=== PATIENT | female | born 1950 | race Caucasian/White ===

== ENCOUNTER 2017-06-01 05:00 | Inpatient (IN) ==
[2017-05-28 14:55] LABS: Basophils # (Auto) 0 K/mcL (0.0-0.3); Basophils % (Auto) 0.9 % (0.0-2.0); Eosinophils # (Auto) 0.1 K/mcL (0.0-0.7); Eosinophils % (Auto) 2.1 % (0.0-7.0); Lymphocytes # (Auto) 1.2 K/mcL (1.5-4.8); Lymphocytes % (Auto) 22.5 % (15.5-49.0); Mean Cell Volume 96.2 fL (80.0-100.0); Mean Corpuscular HGB Conc 34.6 g/dL (31.0-36.0); Mean Corpuscular Hemoglobin 33.3 pg (26.0-34.0); Monocytes # (Auto) 0.2 K/mcL (0.1-0.9); Monocytes % (Auto) 4.5 % (1.0-12.0); Platelet Count 180 K/mcL (140-440); RBC 3.17 M/mcL (4.00-5.20); Red Cell Distribution Width 13.8 % (11.5-14.5)
[2017-05-28 15:15] LABS: Blood Urea Nitrogen 41 mg/dl (8-23)
[2017-05-28 15:47] LABS: Appearance,Urine HAZY; Bacteria,Urine 0 /hpf (0); Bilirubin,Urine NEG (NEG); Color,Urine STRAW; Glucose,Urine (UA) 50 mg/dL (NEG); Leukocyte Esterase,Urine 250 /uL (NEG); Nitrate,Urine NEG (NEG); Protein,Urine 100 mg/dL (NEG); Specific Gravity,Urine 1.009 (1.000-1.035); Urine Blood 0.03 mg/dL (<0.03); Urine RBC 1 /hpf (0-1); Urine Squamous Epithelial Cell 7 /hpf (0-4); Urine WBC 22 /hpf (0-4); Urobilinogen,Urine NEG (NEG)
[2017-06-01] MEDS ORDERED: ACETAMINOPHEN 500 MG TABLET PO SCH ×2 (06:00→07:00)
[2017-06-01] MEDS ORDERED: CELECOXIB 200 MG CAPSULE PO SCH (06:00)
[2017-06-01] MEDS ORDERED: PREGABALIN 75 MG CAPSULE PO SCH (06:00)
[2017-06-01] MEDS ORDERED: ceFAZolin 1 GM VIAL IV SCH (06:00)
[2017-06-01] MEDS ORDERED: oxyCODONE 10 MG TAB.ER.12H PO SCH (06:00)
[2017-06-01] MEDS ORDERED: KETOROLAC 30 MG, ROPIVACAINE HCL/PF 49.5 ML, EPINEPHrine 0.5 MG, 0.9 % SODIUM CHLORIDE ... IJ ONE (07:00)
[2017-06-01] MEDS ORDERED: LIDOCAINE HCL/PF 100 MG/5 ML SYRINGE IV ONE (07:32)
[2017-06-01] MEDS ORDERED: fentaNYL 250 MCG/5 ML VIAL IV ONE (07:32)
[2017-06-01] MEDS ORDERED: DEXAMETHASONE 10 MG/ML VIAL ONE (07:32)
[2017-06-01] MEDS ORDERED: PROPOFOL 200 MG/20 ML VIAL IV ONE (07:32)
[2017-06-01] MEDS ORDERED: GLYCOPYRROLATE 0.2 MG/ML VIAL IV ONE (07:32)
[2017-06-01] MEDS ORDERED: ONDANSETRON 4 MG/2 ML VIAL ONE (07:32)
[2017-06-01] MEDS ORDERED: GENTAMICIN SULFATE 800 MG/20 ML VIAL IR ONE (07:56)
[2017-06-01] MEDS ORDERED: METOPROLOL TARTRATE 5 MG/5 ML VIAL IV PRN (09:11)
[2017-06-01] MEDS ORDERED: FLUMAZENIL 0.1 MG/ML ML IV PRN (09:11)
[2017-06-01] MEDS ORDERED: ONDANSETRON 4 MG/2 ML VIAL IV PRN ×2 (09:11→09:16)
[2017-06-01] MEDS ORDERED: ePHEDrine 50 MG/ML AMPUL IV PRN (09:11)
[2017-06-01] MEDS ORDERED: BENZOCAINE/MENTHOL 1 LOZENGE PO PRN ×2 (09:11→09:16)
[2017-06-01] MEDS ORDERED: MEPERIDINE 25 MG/ML SYRINGE IV PRN (09:11)
[2017-06-01] MEDS ORDERED: IPRATROPIUM/ALBUTEROL 3 ML AMPUL.NEB NEB PRN (09:11)
[2017-06-01] MEDS ORDERED: ATROPINE SULFATE 0.4 MG/ML VIAL IV PRN (09:11)
[2017-06-01] MEDS ORDERED: METHOCARBAMOL 1,000 MG/10 ML VIAL IV PRN (09:11)
[2017-06-01] MEDS ORDERED: diphenhydrAMINE 50 MG/ML VIAL IV PRN (09:11)
[2017-06-01] MEDS ORDERED: HYDROmorphone 2 MG/ML SYRINGE IV PRN ×2 (09:11→09:16)
[2017-06-01] MEDS ORDERED: NALOXONE HCL 0.4 MG/ML VIAL IV PRN (09:11)
[2017-06-01] MEDS ORDERED: LACTATED RINGERS 1,000 ML IV SCH (09:15)
--- NOTE | 2017-06-01 09:15 | Brief Operative Note ---
Date of procedure: 06/01/17 Pre-op diagnosis: left knee djd severe Post-op diagnosis: same Procedure: lefty robotic tka Grafts/Implants: Yes Anesthesia: GETA Complications: none Complications Description: 06/01/17 09:16 none Surgeon: Demetrius Copeland Leadership Program Intern: Bobo Shanks Estimated blood loss (cc): 10 Tourniquet Time (Minutes): 50 Specimens Removed/Pathology: none sent Condition: stable Disposition: PACU
[2017-06-01] MEDS ORDERED: POLYETHYLENE GLYCOL 3350 17 GM PACKET PO PRN (09:16)
[2017-06-01] MEDS ORDERED: MAGNESIUM HYDROXIDE 30 ML ORAL.SUSP PO PRN (09:16)
[2017-06-01] MEDS ORDERED: TRANEXAMIC ACID 1,000 MG/10 ML VIAL IV SCH (09:16)
[2017-06-01] MEDS ORDERED: FLEETS ADULT ENEMA PR PRN (09:16)
[2017-06-01] MEDS ORDERED: ACETAMINOPHEN 325 MG TABLET PO PRN (09:16)
[2017-06-01] MEDS ORDERED: BISACODYL 10 MG SUPP.RECT PR PRN (09:16)
[2017-06-01] MEDS: fentaNYL 100 MCG/2 ML VIAL IV PRN ×2 (09:39→09:54)
--- NOTE | 2017-06-01 10:35 | XRay Report ---
CLINICAL INFORMATION: Postop total knee COMPARISON: None. FINDINGS: Total knee prostheses is anatomically aligned. No osseous abnormalities. Soft tissues swelling seen as expected IMPRESSION: Negative Interpreted and Authenticated by: George Ortega 06/01/17
--- NOTE | 2017-06-01 11:09 | Operative Note ---
DATE OF OPERATION: 06/01/2017 PREOPERATIVE DIAGNOSIS: Left knee degenerative arthritis throughout all three compartments. POSTOPERATIVE DIAGNOSIS: Left knee degenerative arthritis throughout all three compartments. PROCEDURE: Left total knee arthroplasty using the Zoodles robot. SURGEON: Demetrius Copeland MD ROUTER OPERATOR PIN: Bobo Shanks PA-C ANESTHESIA: General LMA anesthesia by Hillary Pendleton CRNA COMPLICATIONS: None. TOTAL TOURNIQUET TIME: 50 minutes. ESTIMATED BLOOD LOSS: Minimal. IMPLANTS PLACED: A size 5 femur and size 5 tibial baseplate for the left knee, both cemented, cruciate retained design with a 9 mm poly and a 33 mm patellar button. DESCRIPTION OF PROCEDURE: The patient was brought to the operating room and put to sleep with general LMA anesthesia. Once asleep, the patient had the left leg sterilely prepped and draped in the usual sterile fashion. Once confirmed as the operative site, preop antibiotics given and tranexamic acid given, the left leg was sterilely prepped and draped. Ioban was placed over the skin. We placed two pins above and below the knee and made a mid vastus approach to the knee. Severe arthritis of the lateral and trochlear groove and the medial compartment were present. There was severe arthritis throughout all three compartments. We proceeded with a robotic total knee. We placed pins above and below the knee, registered the center hip rotation and registered the medial and lateral malleolus and 30 points on the femur and tibia were registered as well as intra-articular pins. We then balanced the knee in both at 15 and 90 degrees. Once perfectly balanced and we had adjusted the size of the implant and rotation for patellar tracking, we then proceeded with the robotic portion of the case. We registered the robot. The robot was brought in and the femoral cuts were made. We then made our tibial cut and the bony fragments were removed. A size 5 tibial baseplate setting the rotation per the preoperative plan was tapped into place. Coverage was excellent. We then placed a size 5 femur with a cruciate retained design. Posterior spurs were removed. At this point, any medial and lateral spurs were also removed. We irrigated thoroughly and placed a 9 and 11 poly insert. The 9 seemed to be the most appropriate for tension. This took her out of recurvatum. She is in about 7 to 10 degrees of recurvatum to start the case. This brought her to 0, perfectly anatomically aligned with varus valgus. The patella was then prepared and measured 22 mm in total thickness. This was cut to 14 and then cemented into place. A size 33 mm patellar button and a size 5 femur after using the CarboJet to clean the bone, we cemented into place a size 5 femur and then placed a 9 mm poly. All excess cement was removed. We had injected the soft tissues with the post-injection formula. The patient tolerated this well without complication. We thoroughly irrigated and deflated the tourniquet at 50 minutes and then closed the mid vastus approach with #1 Stratafix. Two of these sutures were used and then we closed the skin with 2-0 Vicryl and adhesive closure. The patient tolerated this well without complication. RBH:randal Job ID: [id number] Doc ID: [id number] Demetrius Copeland MD
[2017-06-01] MEDS: 0.45 % SODIUM CHLORIDE 1,000 ML IV SCH ×2 (11:50→22:45)
[2017-06-01] MEDS: SEVELAMER 800 MG TABLET PO SCH ×2 (12:27→17:42)
[2017-06-01] MEDS: KETOROLAC 15 MG/ML VIAL IV SCH ×2 (12:27→17:59)
--- NOTE | 2017-06-01 14:57 | Nephrology Consult Note ---
History of Present Illness - Reason for Consult Patient information: Note initiated : 06/01/17 at 2:55 pm Service Date, if different from initiated Date: [] Patient: Pinky Castellon 66 y/o F admitted on 06/01/17 for Left Total Knee Arthroplasty with Silvio. Chief Complaint: [] Consult date: 06/01/17 end stage renal disease Requesting physician: Demetrius Copeland - Chief Complaint admitted for left TKR - History of Present Illness Patient is a 66 y/o pleasant white female with h/o ESRD on PD who is been admitted for left TKR She did have an uneventful surgery this am and was seen post operative. She had no complaints and she denied nausea, vomiting. No SOB, CP, she have some LE edema. She is tolerating po with no issues. 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 HTN renal osteodystrophy anemia of CKD Past surgical history: h/o PD cath placement h/o right TKR Past family history: H/O ADPKD, father had this Past social history: lives alone in [place], has good family support she has no addictions Medications and Allergies Home Medications Medication Instructions Recorded Confirmed Type Cinacalcet [Sensipar] 60 mg PO SUMOWEFR@0900 12/24/15 06/01/17 History Sevelamer [Renvela] 1,600 mg PO TIDCC 12/24/15 06/01/17 History Sevelamer [Renvela] 800 mg PO PRN PRN 12/24/15 05/16/16 History omeprazole 20 mg capsule,delayed 40 mg PO ACB #90 cap 01/09/17 06/01/17 Rx release Cinacalcet [Sensipar] 30 mg PO 3XW 05/28/17 06/01/17 History Ferrous Sulfate 325 mg PO BIDCC 05/28/17 06/01/17 History Vitamin D3 5,000 unit PO DAILY 05/28/17 06/01/17 History amLODIPine [Norvasc] 10 mg PO QDAY 05/28/17 06/01/17 History Allergies Allergy/AdvReac Type Severity Reaction Status Date / Time heparin Allergy Severe Difficulty Verified 05/28/17 13:09 Breathing levothyroxine sodium Allergy Mild Itching Verified 01/01/16 11:17 [From Synthroid] Exam - Vital Signs Vital signs: Temp Pulse Resp BP Pulse Ox 96 F L 76 16 153/92 99 06/01/17 10:10 06/01/17 09:59 06/01/17 11:55 06/01/17 12:55 06/01/17 13:00 - General Appearance General appearance: appears started age, obese EENT: mucous membranes moist Neck: no JVD Respiratory: clear Cardiology: no rub, edema, normal S1, normal S2 Gastrointestinal: no tenderness, no guarding Integumentary: no rash, warm and dry Neurologic: no focal deficit, no asterixis, alert and oriented x3 Musculoskeletal: no erythema, no cyanosis Psychiatric: mood/affect appropriate Results - Lab Results 05/28/17 13:34 05/28/17 13:34 Most recent lab results Calcium 10.0 mg/dl (8.6-10.4) 05/28/17 13:34 Assessment and Plan (1) ESRD on peritoneal dialysis PD tonight, will do CCPD, 8 hrs duration, total of 3 exchanges with 1800ml fill volume, 1.5% 2 exchanges and 2.5% 1 exchange and 500ml of last fill if she gets discharged tomorrow she will resume her home PD ct home medications diet changed to renal diet please do not use NSAIDS, pt has some residual renal function and we want to keep this if possible Will follow along Status: Acute
[2017-06-01] MEDS: 0.9 % SODIUM CHLORIDE 10 ML SYRINGE IV SCH ×2 (16:21→23:07)
[2017-06-01] MEDS: CALCITRIOL 0.25 MCG CAPSULE PO SCH (16:32)
[2017-06-01] MEDS: ceFAZolin 1 GM VIAL IV SCH ×2 (16:32→23:05)
[2017-06-01] MEDS ORDERED: TEMAZEPAM 15 MG CAPSULE PO PRN (21:00)
[2017-06-01] MEDS: SENNOSIDES 1 TABLET PO SCH (21:35)
[2017-06-01] MEDS: ASPIRIN 325 MG ENTERIC COATED TABLET PO SCH (21:35)
[2017-06-01] MEDS: DOCUSATE SODIUM 100 MG CAPSULE PO SCH (21:36)
[2017-06-02] MEDS: KETOROLAC 15 MG/ML VIAL IV SCH (03:08)
[2017-06-02] MEDS: HYDROCODONE/APAP 7.5/325MG TABLET PO PRN ×5 (03:38→22:08)
[2017-06-02] MEDS: 0.45 % SODIUM CHLORIDE 1,000 ML IV SCH ×2 (06:50→16:29)
[2017-06-02] MEDS: 0.9 % SODIUM CHLORIDE 10 ML SYRINGE IV SCH ×3 (07:16→22:33)
[2017-06-02] MEDS: OMEPRAZOLE 20 MG CAPSULE PO SCH (07:16)
--- NOTE | 2017-06-02 07:38 | Orthopedic Progress Note ---
Subjective Patient information: Note initiated : 06/02/17 at 7:37 am Service Date, if different from initiated Date: [] Patient: Pinky Castellon 66 y/o F admitted on 06/01/17 for Left Total Knee Arthroplasty with Silvio. Chief Complaint: [Pt is stable this morning on post operative day 1 without any significant concerns or complaints. Patients vital signs have remained stable. Patients dressing is dry and exhibits a grossly intact neurovascular and neuromotor exam. Patients 10 point ROS is otherwise negative. ] Objective Vital signs: Vital Signs Temp Pulse Resp BP BP Pulse Ox 06/02/17 04:00 97.9 F 71 14 143/77 96 06/02/17 01:55 96 06/01/17 23:23 98.6 F 80 14 122/77 97 06/01/17 20:20 96 06/01/17 20:00 98.0 F 77 14 141/85 141/85 96 06/01/17 17:00 96 06/01/17 15:00 97.6 F 18 143/90 96 06/01/17 13:00 99 06/01/17 12:55 153/92 99 06/01/17 11:55 16 157/93 100 06/01/17 11:25 142/92 100 06/01/17 11:05 98 06/01/17 10:55 152/110 100 06/01/17 10:40 144/84 100 06/01/17 10:25 136/81 99 06/01/17 10:10 96 F L 16 133/83 100 06/01/17 09:59 97.4 F 76 12 140/71 100 06/01/17 09:50 81 15 149/71 100 06/01/17 09:45 79 14 144/73 100 06/01/17 09:40 90 14 150/73 100 06/01/17 09:35 87 12 158/78 100 06/01/17 09:30 96 H 18 152/79 100 06/01/17 09:25 94 H 14 157/78 100 06/01/17 09:20 97.2 F 106 H 16 155/77 99 Intake and Output 06/01/17 06/02/17 06/02/17 21:59 05:59 13:59 Intake Total 1320 / 1320 1600 / 1600 300 / 300 Output Total 400 / 400 Balance 1320 / 1320 1200 / 1200 300 / 300 Intake: Oral 1320 / 1320 1600 / 1600 300 / 300 Output: Void Amount 400 / 400 Straight 400 / 400 Other: Meal Dinner Percent of Meal Consumed 100% Feeding Ability Independent Weight 222 lb 14.4 oz 229 lb Patient Weight 06/03/17 05:59 Weight 229 lb Intake & Output: Intake & Output 06/01/17 06/02/17 06/02/17 21:59 05:59 13:59 Intake Total 1320 / 1320 1600 / 1600 300 / 300 Output Total 400 / 400 Balance 1320 / 1320 1200 / 1200 300 / 300 Weight 222 lb 14.4 oz 229 lb Intake: Oral 1320 / 1320 1600 / 1600 300 / 300 Output: Void Amount 400 / 400 Straight 400 / 400 Other: Meal Dinner Percent of Meal Consumed 100% Feeding Ability Independent Incision: Yes healing Incision clean and dry: Yes Dressing: Yes clean, Yes dry Weight bearing status: full Neurological exam IM: Yes motor sensory intact, Yes neurovascular intact Extremities exam IM: Yes Foot pink and warm, Yes neurovascular intact - Labs CBC & BMP: 06/02/17 04:42 05/28/17 13:34 Labs: Orthopedic Labs 05/28/17 13:34 PT 13.2 INR 1.0 APTT 23 06/02/17 05/28/17 04:42 13:34 Hgb 10.5 L Hct 23.9 L 30.5 L Assessment and Plan (1) Hx of total knee arthroplasty Patient has been educated regarding wound care and dressings, follow up recommendations, and medication use. We will f/u with the patient within 2-3 weeks for wound check. Status: Acute
--- NOTE | 2017-06-02 07:41 | Discharge Summary ---
Ortho Discharge - TKA - Patient Instructions Diet: Regular Diet Activity: activity as tolerated, weight bearing as tolerated Total Knee Protocol: For Total Knee: Start ROM ANILA with stationary bike or rocking chair. Work on gaining full extension of knee. Posterior dislocation precautions provided. Hip abductor strengthening and gait training instructions provided. Apply Cryocuff as instructed. Dressing Care: May shower in 2 days - Problem Maintenance (1) Hx of total knee arthroplasty Status: Acute - Follow Up Plan Follow Up Appointments: Demetrius Copeland MD [Physician] - 06/18/17 10:40 am Disposition: Home, Self-Care Prognosis: Good Rehab Potential: Good I certify that the patient requires SNF services: No Overall status at discharge: patient is progressing back to baseline - Orders For Discharge Prescriptions: Aspirin [Ecotrin] 325 mg PO BID #60 Docusate Sodium [Colace] 100 mg PO BID #60 capsule Hydrocodone/APAP 7.5/325Mg [[place] 7.5/325Mg] 1 - 2 tab PO Q4HP PRN #75 tablet PRN Reason: Pain
[2017-06-02] MEDS: amLODIPine 5 MG TABLET PO SCH (08:45)
[2017-06-02] MEDS: ASPIRIN 325 MG ENTERIC COATED TABLET PO SCH ×2 (08:45→20:12)
[2017-06-02] MEDS: VITAMIN D3 5,000 UNIT CAPSULE PO SCH (08:45)
[2017-06-02] MEDS: SEVELAMER 800 MG TABLET PO SCH ×3 (08:45→17:19)
[2017-06-02] MEDS: DOCUSATE SODIUM 100 MG CAPSULE PO SCH ×2 (08:45→20:12)
[2017-06-02] MEDS ORDERED: CINACALCET 30 MG TABLET PO SCH (09:00)
--- NOTE | 2017-06-02 16:05 | Nephrology Progress Note ---
Subjective Patient information: Note initiated : 06/02/17 at 3:52 pm Service Date, if different from initiated Date: [] Patient: Pinky Castellon 66 y/o F admitted on 06/01/17 for Left Total Knee Arthroplasty with Silvio. Chief Complaint: [] Principal diagnosis: s/p TKR Interval history: Patient doing well denies any concerns with PD overnight no SOB, CP, dizziness edema is better has not been able to void and hence may not be discharged tonight Pertinent ROS: as above Objective - Vital Signs Vital signs: Vital Signs Temp Pulse Resp BP BP BP Pulse Ox 06/02/17 13:00 98 06/02/17 11:47 97.8 F 58 L 18 129/80 98 06/02/17 09:00 99 06/02/17 08:07 98.0 F 151/68 06/02/17 07:49 98.4 F 61 16 124/81 99 06/02/17 04:00 97.9 F 71 14 143/77 96 06/02/17 01:55 96 06/01/17 23:23 98.6 F 80 14 122/77 97 06/01/17 20:20 96 06/01/17 20:00 98.0 F 77 14 141/85 141/85 96 06/01/17 17:00 96 Intake and Output 06/02/17 06/02/17 06/02/17 05:59 13:59 21:59 Intake Total 1600 / 1600 1220 / 1220 Output Total 400 / 400 Balance 1200 / 1200 1220 / 1220 Intake: Oral 1600 / 1600 1220 / 1220 Output: Void Amount 400 / 400 Straight 400 / 400 Other: Meal Lunch Percent of Meal Consumed 100% Feeding Ability Independent Weight 229 lb Patient Weight 06/03/17 05:59 Weight 229 lb Intake & Output: Intake & Output 06/02/17 06/02/17 06/02/17 05:59 13:59 21:59 Intake Total 1600 / 1600 1220 / 1220 Output Total 400 / 400 Balance 1200 / 1200 1220 / 1220 Weight 229 lb Intake: Oral 1600 / 1600 1220 / 1220 Output: Void Amount 400 / 400 Straight 400 / 400 Other: Meal Lunch Percent of Meal Consumed 100% Feeding Ability Independent - General Appearance General appearance: appears started age, obese EENT: mucous membranes moist Neck: no JVD Respiratory: clear Cardiology: no rub, no edema, normal S1, normal S2 Gastrointestinal: no tenderness, no guarding Integumentary: no rash, warm and dry Neurologic: no asterixis, alert and oriented x3 Musculoskeletal: no erythema, no clubbing Psychiatric: mood/affect appropriate - Lab 06/02/17 04:42 05/28/17 13:34 Most recent lab results Calcium 10.0 mg/dl (8.6-10.4) 05/28/17 13:34 Assessment and Plan (1) ESRD on peritoneal dialysis she will do PD, will ct home prescription with CCP[facility], 3 exchanges, 1800ml fill volume, total of 8 hrs and last fill with 500cc she will get aranesp on discharge for her drop in H.H she will ct with home meds she will resume home PD on discharge Status: Acute
[2017-06-02] MEDS ORDERED: TAMSULOSIN 0.4 MG CAPSULE PO ONE (16:31)
[2017-06-02] MEDS: SENNOSIDES 1 TABLET PO SCH (20:12)
[2017-06-03] MEDS: 0.45 % SODIUM CHLORIDE 1,000 ML IV SCH ×2 (01:55→12:45)
[2017-06-03] MEDS: HYDROCODONE/APAP 7.5/325MG TABLET PO PRN ×3 (02:39→10:55)
[2017-06-03] MEDS: 0.9 % SODIUM CHLORIDE 10 ML SYRINGE IV SCH (06:31)
--- NOTE | 2017-06-03 07:12 | Orthopedic Progress Note ---
Subjective Patient information: Note initiated : 06/03/17 at 7:10 am Service Date, if different from initiated Date: [] Patient: Pinky Castellon 66 y/o F admitted on 06/01/17 for Left Total Knee Arthroplasty with Silvio. Chief Complaint: [Left knee djd with total knee] Principal diagnosis: s/p TKR Objective Vital signs: Vital Signs Temp Pulse Resp BP BP BP Pulse Ox 06/03/17 06:37 97.4 F 20 97/51 96 06/03/17 04:00 98.6 F 69 16 118/71 98 06/03/17 01:00 96 06/02/17 23:30 97.4 F 96 H 12 116/69 96 06/02/17 21:00 96 06/02/17 19:58 97.9 F 134/78 06/02/17 19:56 97.9 F 60 20 134/78 96 06/02/17 16:59 99 06/02/17 16:00 98.3 F 63 16 139/83 99 06/02/17 13:00 98 06/02/17 11:47 97.8 F 58 L 18 129/80 98 06/02/17 09:00 99 06/02/17 08:07 98.0 F 151/68 06/02/17 07:49 98.4 F 61 16 124/81 99 Intake and Output 06/02/17 06/03/17 06/03/17 21:59 05:59 13:59 Intake Total 820 / 820 240 / 240 Output Total 450 / 450 300 / 300 Balance 370 / 370 240 / 240 -300 / -300 Intake: Oral 820 / 820 240 / 240 Output: Void Amount 450 / 450 300 / 300 Straight 450 / 450 Other: Meal Dinner Percent of Meal Consumed 100% Feeding Ability Independent # Voids 1 Weight 224 lb 6.4 oz Intake & Output: Intake & Output 06/02/17 06/03/17 06/03/17 21:59 05:59 13:59 Intake Total 820 / 820 240 / 240 Output Total 450 / 450 300 / 300 Balance 370 / 370 240 / 240 -300 / -300 Weight 224 lb 6.4 oz Intake: Oral 820 / 820 240 / 240 Output: Void Amount 450 / 450 300 / 300 Straight 450 / 450 Other: Meal Dinner Percent of Meal Consumed 100% Feeding Ability Independent # Voids 1 Incision: Yes healing Incision clean and dry: Yes Dressing: Yes clean Weight bearing status: full Neurological exam IM: Yes oriented X3, Yes neurovascular intact Extremities exam IM: Yes Foot pink and warm, Yes neurovascular intact - Labs CBC & BMP: 06/02/17 04:42 05/28/17 13:34 Labs: Orthopedic Labs 05/28/17 13:34 PT 13.2 INR 1.0 APTT 23 06/02/17 05/28/17 04:42 13:34 Hgb 10.5 L Hct 23.9 L 30.5 L
[2017-06-03] MEDS: OMEPRAZOLE 20 MG CAPSULE PO SCH (07:18)
[2017-06-03] MEDS: SEVELAMER 800 MG TABLET PO SCH ×2 (07:59→12:19)
[2017-06-03] MEDS ORDERED: CINACALCET 30 MG TABLET PO SCH (09:00)
[2017-06-03] MEDS: DOCUSATE SODIUM 100 MG CAPSULE PO SCH (09:11)
[2017-06-03] MEDS: amLODIPine 5 MG TABLET PO SCH ×3 (09:11→10:55)
[2017-06-03] MEDS: VITAMIN D3 5,000 UNIT CAPSULE PO SCH (09:11)
[2017-06-03] MEDS: ASPIRIN 325 MG ENTERIC COATED TABLET PO SCH (09:11)
[2017-06-03] MEDS: CALCITRIOL 0.25 MCG CAPSULE PO SCH (09:12)
== END 2017-06-03 13:15 | disposition home or self-care (01) | DRG 469 ==
LOC: MEDSUR 05:00
PROVIDERS: ADMIT Orthopaedic Surgery; ATTEND Orthopaedic Surgery

== ENCOUNTER 2020-05-12 01:49 | Inpatient (IN) ==
[2020-05-12] MEDS: amLODIPine 5 MG TABLET PO PRN (01:49)
[2020-05-12] MEDS ORDERED: 0.9 % SODIUM CHLORIDE 1,000 ML IV ONE (02:11)
[2020-05-12] MEDS ORDERED: VANCOMYCIN 1,000 MG in 0.9 % SODIUM CHLORIDE 250 ML IV ONE (02:11)
--- NOTE | 2020-05-12 02:31 | Emergency Department Note ---
HPI General Chief complaint: Abdominal Pain Stated complaint: Peritoneal Infection Time Seen by Provider: 05/12/20 02:03 Source: patient Mode of arrival: ambulatory Limitations: no limitations History of Present Illness HPI Narrative: Narrative: 69-year-old female presenting to the emergency department chief complaint of cloudy peritoneal dialysate. Patient apparently had fluid removed yesterday and sent however results unavailable and we do not know the status of that sample. Patient was treated at an [facility] for history [place]. Patient states febrile feeling ill abdominal pain and persistent cloudy thick peritoneal fluid. Related Data Home Medications Medication Instructions Recorded Confirmed cinacalcet 30 mg tablet 90 mg PO MOTUWETHFR tab 06/21/18 08/11/19 amino ac-protein hydr-whey pro 30 ml PO DAILY 06/29/18 08/11/19 [ProSource Plus] calcitriol 0.25 mcg capsule 0.25 mcg PO QDAY cap 03/27/20 darbepoetin kayla in polysorbat 100 100 mcg SUB-Q ONCE ml 05/07/20 mcg/mL in polysorbate injection iron sucrose 100 mg iron/5 mL 100 mg IV Q4W ml 05/07/20 intravenous solution Previous Rx's Medication Instructions Recorded B complex-vitamin C-folic acid 1 tab PO BID tablet 07/07/18 [Folbee Plus] cyanocobalamin (vitamin B-12) 2,500 mcg PO QDAY #90 tab 11/23/18 2,500 mcg chewable tablet gentamicin 0.1 % topical cream 1 applic TOPICAL DIRECTED #15 g 05/24/19 sevelamer carbonate 800 mg tablet 2,400 mg PO TIDCC #270 tab 05/24/19 amlodipine 5 mg tablet 10 mg PO QDAY #180 tab 07/12/19 ferrous fumarate 324 mg (106 mg 324 mg PO QDAY #30 tab 09/27/19 iron) tablet calcium acetate 667 mg tablet 667 mg PO .TIDcC #90 tab 03/27/20 cholecalciferol (vitamin D3) 125 125 mcg PO QDAY #30 tab 03/27/20 mcg (5,000 unit) tablet clonazepam 0.5 mg tablet 0.5 mg PO QHS #30 tab 04/24/20 omeprazole 20 mg capsule,delayed 40 mg PO BID #90 cap 05/07/20 release Allergies Allergy/AdvReac Type Severity Reaction Status Date / Time heparin Allergy Severe Difficulty Verified 05/12/20 01:55 Breathing levothyroxine sodium Allergy Mild Itching Verified 05/12/20 01:55 [From Synthroid] Review of Systems ROS ROS Narrative: Narrative: All systems ED: reviewed and negative except as stated. [facility] Narrative Patient History Narrative: Narrative: Medical/Surgical/Family History All Active Problems (Updated 05/12/20 @ 02:50 by Florentino Dias MD) Peritonitis associated with peritoneal dialysis (Acute) Sepsis (Acute) History of esophagogastroduodenoscopy (EGD) (Chronic 04/20/20) RLS (restless legs syndrome) (Acute) Polyp of duodenum (Acute) Peritonitis (Acute) Dizziness (Acute) Vomiting (Acute) Gentamicin toxicity (Acute) Peritoneal dialysis adequacy testing (Chronic) Nasal drainage (Chronic) Essential hypertension (Chronic) Flank pain (Chronic) Renal failure (Chronic) Cyst of right breast (Chronic) Sinusitis (Chronic) Gastritis (Chronic) Joint pain (Chronic) Hypertension (Chronic) Anemia (Chronic) Kidney pain (Chronic) Screen for colon cancer (Acute) GERD (gastroesophageal reflux disease) (Acute) Abdominal pain (Acute) ESRD on peritoneal dialysis (Acute) Hx of total knee arthroplasty (Acute) Hypothyroidism (Acute) Medical History (Updated 05/12/20 @ 02:50 by Florentino Dias MD) Abdominal pain (Acute) Anemia (Chronic) Cyst of right breast (Chronic) Essential hypertension (Chronic) Flank pain (Chronic) Gastritis (Chronic) GERD (gastroesophageal reflux disease) (Acute) Hypertension (Chronic) Hypothyroidism (Acute) Joint pain (Chronic) Kidney pain (Chronic) Nasal drainage (Chronic) Peritoneal dialysis adequacy testing (Chronic) Renal failure (Chronic) Screen for colon cancer (Acute) Sinusitis (Chronic) Surgical History (Updated 04/27/20 @ 10:41 by Linda Servin) History of esophagogastroduodenoscopy (EGD) (Chronic 04/20/20) Social History Smoking Status: Never smoker Alcohol Intake Frequency: does not drink Substance Use: does not use Exam Narrative Narrative: Narrative: General: Alert, interactive, appropriate Head: Atraumatic, normocephalic Eyes: Extraocular movements intact, sclera anicteric, no conjunctival injection Ears: Pinnae normal, no discharge Mouth: Oral mucosa moist, no acute swelling or evidence of infection Nares: No nasal discharge, patent bilaterally Neck: Trachea midline, full range of motion Chest: Symmetrical chest wall rise, breathing normally; nonlabored respirations Abdomen: Patient with diffuse tenderness throughout the abdomen, consistent with peritonitis Cardiovascular: Patient with excellent perfusion to the extremities; with tachycardia Skin: Patient without area of erythema, patient is without rash, no ascending lymphangitis or lymphadenopathy Extremities: Full range of motion joints, no obvious deformities Neuro: Alert, oriented x3, cranial nerves II through XII grossly intact, patient without lateralizing findings such as weakness, or abnormal reflexes Psychiatric: Normal affect, normal mood General Limitations: no limitations Course Vital Signs Vital signs: Vital Signs Temperature 101.1 F H 05/12/20 01:50 Pulse Rate 103 H 05/12/20 01:50 Respiratory Rate 16 05/12/20 01:50 Blood Pressure 171/93 05/12/20 01:50 Pulse Oximetry (%) 100 05/12/20 01:50 Temperature 101.1 F H 05/12/20 01:50 Pulse Rate 106 H 05/12/20 02:26 Respiratory Rate 16 05/12/20 01:50 Blood Pressure 144/71 05/12/20 02:21 Pulse Oximetry (%) 99 05/12/20 02:26 MDM MDM Narrative Medical decision making narrative: Narrative: Patient with peritoneal dialysis and infection currently based on history physical exam as well as vital signs. Patient with cloudy dialysate. Samples obtained sepsis work-up performed and patient treatment initiated with vanco mycin. Patient lives an hour and a half from the hospital has no other access to care or mechanism to obtain parenteral antibiotics at this time. In my medical opinion at this time patient most reasonably should be managed inpatient evaluation in the hospital. Lab Data Result diagrams: 05/12/20 02:20 05/12/20 02:20 CC TIME Critical Care Time Critical Care Time: Yes Total Critical Care Time: 35 Attestation: This critical care time was direct patient care exclusive of other procedures. Discharge Plan Patient/Caregiver Discharge Instructions Pt seen by TREE TRIMMER HELPER/PA only: No Clinical Impression: Peritonitis associated with peritoneal dialysis, Sepsis Patient Disposition: Xfer As Inpt ([facility]) Follow up with: Brad Varma MD [Primary Care Provider] - Prescriptions: No Action cyanocobalamin (vitamin B-12) 2,500 mcg tablet,chewable 2,500 mcg PO QDAY Qty: 90 RF: 1 sevelamer carbonate 800 mg tablet 2,400 mg PO TIDCC Qty: 270 RF: 12 gentamicin 0.1 % cream 1 applic TOPICAL DIRECTED Qty: 15 RF: 12 amlodipine 5 mg tablet 10 mg PO QDAY Qty: 180 RF: 2 ferrous fumarate 324 mg (106 mg iron) tablet 324 mg PO QDAY Qty: 30 RF: 2 calcitriol 0.25 mcg capsule 0.25 mcg PO QDAY RF: 0 calcium acetate 667 mg tablet 667 mg PO .TIDcC Qty: 90 RF: 3 cholecalciferol (vitamin D3) [Vitamin D3] 125 mcg (5,000 unit) tablet 125 mcg PO QDAY Qty: 30 RF: 11 clonazepam 0.5 mg tablet 0.5 mg PO QHS Qty: 30 RF: 0 Aranesp (in polysorbate) 100 mcg/mL solution 100 mcg SUB-Q ONCE RF: 0 omeprazole 20 mg capsule,delayed release(DR/EC) 40 mg PO BID Qty: 90 RF: 3 Venofer 100 mg iron/5 mL solution 100 mg IV Q4W RF: 0 cinacalcet 30 mg tablet 90 mg PO MOTUWETHFR RF: 0 Hold Instructions: Doctor's Order amino ac-protein hydr-whey pro [ProSource Plus] 30 ML Liquid.Pkt 30 ml PO DAILY RF: 0 B complex-vitamin C-folic acid [Folbee Plus] 1 TAB Tablet 1 tab PO BID RF: 0
[2020-05-12] MEDS ORDERED: ONDANSETRON 4 MG/2 ML VIAL IV PRN (02:45)
[2020-05-12 03:14] LABS: Basophils # (Auto) 0.01 K/mcL (0.00-0.30); Basophils % (Auto) 0.1 % (0.0-2.0); Eosinophils # (Auto) 0.04 K/mcL (0.00-0.70); Eosinophils % (Auto) 0.3 % (0.0-7.0); Granulocytes % (Auto) 91.7 % (38.0-78.0); Hematocrit 30.5 % (34.1-44.9); Hemoglobin 9.9 g/dL (11.2-15.7); Lymphocytes # (Auto) 0.63 K/mcL (1.50-4.80); Lymphocytes % (Auto) 5.4 % (15.5-49.0); Mean Cell Volume 100.3 fL (80.0-100.0); Mean Corpuscular HGB Conc 32.5 g/dL (31.0-36.0); Mean Platelet Volume 10.1 fL (7.4-10.4); Monocytes # (Auto) 0.29 K/mcL (0.10-0.90); Monocytes % (Auto) 2.5 % (1.0-12.0); Platelet Count 196 K/mcL (140-440); RBC 3.04 M/mcL (3.59-5.38); Red Cell Distribution Width 14.6 % (11.5-14.5); WBC 11.6 K/mcL (4.50-11.00)
[2020-05-12] MEDS: 0.9 % SODIUM CHLORIDE 10 ML SYRINGE IV SCH ×6 (03:30→19:55)
[2020-05-12] MEDS: HYDROmorphone 0.5 MG/0.5 ML SYRINGE IV PRN ×6 (03:32→22:16)
[2020-05-12 03:43] LABS: ALT/SGPT 14 U/l (0-40); AST/SGOT 11 U/l (0-37); Albumin/Globulin Ratio 1.1 (1.0-2.3); Alkaline Phosphatase 62 U/L (39-117); Bilirubin,Total 0.3 mg/dL (0.0-1.0); Blood Urea Nitrogen 73 mg/dl (8-23); Calcium 7.7 mg/dl (8.6-10.4); Carbon Dioxide 24 mmol/L (22-30); Globulin 2.8 gm/dL (2.2-3.7); Glucose 97 mg/dL (70-105)
[2020-05-12 03:49] LABS: Chloride 89 mmol/L (96-108); Glomerular Filtration Rate 3
[2020-05-12 03:58] LABS: Nucleated Cel,Peritoneal Fluid 6728 /cumm; RBC,Peritoneal Fluid < 50000 /cumm
[2020-05-12 05:16] LABS: Neutrophils,Peritoneal Fluid 99 %
--- NOTE | 2020-05-12 07:38 | Nephrology History & Physical ---
HPI History of Present Illness Patient information: Note initiated : 05/12/20 at 7:36 am Service Date, if different from initiated Date: [] Patient: Pinky Castellon 69 y/o F admitted on 05/12/20 for Peritoneal Infection. Chief Complaint: [] History of present illness: Ms. Castellon is a 69 year old F with ESRD on CCPD who was recently PFSH PFSH All Active Problems (Updated 05/12/20 @ 02:50 by Florentino Dias MD) Peritonitis associated with peritoneal dialysis (Acute) Sepsis (Acute) History of esophagogastroduodenoscopy (EGD) (Chronic 04/20/20) RLS (restless legs syndrome) (Acute) Polyp of duodenum (Acute) Peritonitis (Acute) Dizziness (Acute) Vomiting (Acute) Gentamicin toxicity (Acute) Peritoneal dialysis adequacy testing (Chronic) Nasal drainage (Chronic) Essential hypertension (Chronic) Flank pain (Chronic) Renal failure (Chronic) Cyst of right breast (Chronic) Sinusitis (Chronic) Gastritis (Chronic) Joint pain (Chronic) Hypertension (Chronic) Anemia (Chronic) Kidney pain (Chronic) Screen for colon cancer (Acute) GERD (gastroesophageal reflux disease) (Acute) Abdominal pain (Acute) ESRD on peritoneal dialysis (Acute) Hx of total knee arthroplasty (Acute) Hypothyroidism (Acute) Medical History (Updated 05/12/20 @ 02:50 by Florentino Dias MD) Abdominal pain (Acute) Anemia (Chronic) Cyst of right breast (Chronic) Essential hypertension (Chronic) Flank pain (Chronic) Gastritis (Chronic) GERD (gastroesophageal reflux disease) (Acute) Hypertension (Chronic) Hypothyroidism (Acute) Joint pain (Chronic) Kidney pain (Chronic) Nasal drainage (Chronic) Peritoneal dialysis adequacy testing (Chronic) Renal failure (Chronic) Screen for colon cancer (Acute) Sinusitis (Chronic) Surgical History (Updated 04/27/20 @ 10:41 by Linda Servin) History of esophagogastroduodenoscopy (EGD) (Chronic 04/20/20) Social History (Updated 06/21/18 @ 15:39 by Bronwyn Hernandez RN) household members: alone occupational status: retired pets and animals: Yes pets and animals: cat(s) and dog(s) smoking status: Never smoker alcohol intake frequency: does not drink substance use type: does not use seatbelt use: sometimes MEDS/ALLERGIES Home Medications and Allergies Home Medications Medication Instructions Recorded Confirmed Type cinacalcet 30 mg tablet 90 mg PO DAILY tab 06/21/18 05/12/20 History Folbee Plus 1 tab PO BID tablet 07/07/18 05/12/20 Rx cyanocobalamin (vitamin B-12) 2,500 mcg PO QDAY #90 tab 11/23/18 05/12/20 Rx 2,500 mcg chewable tablet gentamicin 0.1 % topical cream 1 applic TOPICAL DIRECTED #15 g 05/24/19 05/12/20 Rx sevelamer carbonate 800 mg tablet 2,400 mg PO TIDCC #270 tab 05/24/19 05/12/20 Rx ferrous fumarate 324 mg (106 mg 324 mg PO QDAY #30 tab 09/27/19 05/12/20 Rx iron) tablet calcitriol 0.25 mcg capsule 0.25 mcg PO QDAY cap 03/27/20 05/12/20 History cholecalciferol (vitamin D3) 125 125 mcg PO QDAY #30 tab 03/27/20 05/12/20 Rx mcg (5,000 unit) tablet omeprazole 20 mg capsule,delayed 40 mg PO BID #90 cap 05/07/20 05/12/20 Rx release amlodipine 10 mg PO PRN PRN 05/12/20 05/12/20 History sevelamer carbonate 2,400 mg PO TIDWMEAL 05/12/20 05/12/20 History sevelamer carbonate 800 mg PO DAILY 05/12/20 05/12/20 History Allergies Allergy/AdvReac Type Severity Reaction Status Date / Time heparin Allergy Severe Difficulty Verified 05/12/20 01:55 Breathing levothyroxine sodium Allergy Mild Itching Verified 05/12/20 01:55 [From Synthroid] Physical Examination Vital Signs Vital signs: Temp Pulse Resp BP Pulse Ox 37.0 C 82 20 141/78 99 05/12/20 07:08 05/12/20 07:08 05/12/20 07:08 05/12/20 07:08 05/12/20 07:08 Results Lab Results Result Diagrams: 05/12/20 02:20 05/12/20 02:20 Lab results: Most recent lab results Calcium 7.7 mg/dl (8.6-10.4) L 05/12/20 02:20 A/P Time Spent With Patient Time: Total time spent is greater than 50% in coordination of care (as documented) at patient's floor/unit and/or counseling patient:
--- NOTE | 2020-05-12 07:47 | Internal Medicine Consult Note ---
HPI Data of Consult Primary Care Provider: Brad Vrama Consult Narrative cc:: CC: Hugo Crump Patient is 69 y/o female with end-stage renal disease currently maintained peritoneal dialysis. She recently had a GI procedure with removal of 4 by antral and pre-pyloric polyps that were not causing gastric outlet obstruction by Dr George Ramos. She was seen in follow-up for this earlier in the week and aside from some free air in the abdomen (not uncommon in peritoneal dialysis patient) she was felt to be doing fine. At that time she had clear peritoneal fluid. Yesterday she presented to [facility] in [facility] with complaints of abdominal pain that the ER doctor described as concerning for an appendicitis. I was asked if safe to do CT with oral contrast and ensure he was and this was done to rule appendicitis. Samples of the peritoneal fluid were sent for cell count and differential and the findings on the CT scan were only that of excessive stool (according to the ER physician). I recommended increasi ng stool softeners and MiraLAX and the patient was sent home at that point as she was afebrile and did not have fever. Hours later her abdominal pain intensified, she contacted the peritoneal dialysi s nurse software implementation project manager who recommended she proceed to the emergency room at [facility]. Patient was found to have 6700 white cells 99% of which were polymorphonuclear cells, she was given a liter of normal saline, 1 g of vancomycin, and scheduled for admission. This will be her second episode of peritonitis. The first was complicated by antibiotic toxicity leading to ototoxicity and loss of balance for which legal actions insued. She remained under the care of Dr. Cagle subsequent to this episode. At times she is had to use a rolling pulmonary walker for balance but continues to have an active lifestyle. When seen last month in the outpatient clinic she was noted to have a decrease in her dialysis clearances and an additional day dwell trial was suggested. She also complains of restless leg syndrome and her Requip and primidone were discontinued in favor of clonazepam that apparently made her too sleepy. Gram stain with a few Gm Pos Bacilli => vanco should be adequate. Culture from OSH growing Gn Pos Bacilli as well (heavy growth at at <14 hr). Vanco given 1 gm IV on 05/12 at 2 am or so Review of Systems Review of systems: 10 pt review of systems as in HPI Neg fever chill rigors, nightsweats Neg N/V/diarrhea (Bloating post meals is old Restless leg no technique breaks Sx of Abd pain started 05/11/2020. Switch to q4 hour exchanges as CCPD outpatient orders are inadequate as she appears underdialyzed. Constitutional Constitutional: Present as per HPI PFSH PFSH All Active Problems (Updated 05/12/20 @ 12:12 by Santy Lauren MD) Polycystic kidney disease, autosomal dominant (Acute) Peritonitis associated with peritoneal dialysis (Acute) Sepsis (Acute) History of esophagogastroduodenoscopy (EGD) (Chronic 04/20/20) RLS (restless legs syndrome) (Acute) Polyp of duodenum (Acute) Peritonitis (Acute) Dizziness (Acute) Vomiting (Acute) Gentamicin toxicity (Acute) Peritoneal dialysis adequacy testing (Chronic) Nasal drainage (Chronic) Essential hypertension (Chronic) Flank pain (Chronic) Renal failure (Chronic) Cyst of right breast (Chronic) Sinusitis (Chronic) Gastritis (Chronic) Joint pain (Chronic) Hypertension (Chronic) Anemia (Chronic) Kidney pain (Chronic) Screen for colon cancer (Acute) GERD (gastroesophageal reflux disease) (Acute) Abdominal pain (Acute) ESRD on peritoneal dialysis (Acute) Hx of total knee arthroplasty (Acute) Hypothyroidism (Acute) Medical History (Updated 05/12/20 @ 12:12 by Santy Lauren MD) Abdominal pain (Acute) Anemia (Chronic) Cyst of right breast (Chronic) Essential hypertension (Chronic) Flank pain (Chronic) Gastritis (Chronic) GERD (gastroesophageal reflux disease) (Acute) Hypertension (Chronic) Hypothyroidism (Acute) Joint pain (Chronic) Kidney pain (Chronic) Nasal drainage (Chronic) Peritoneal dialysis adequacy testing (Chronic) Renal failure (Chronic) Screen for colon cancer (Acute) Sinusitis (Chronic) Surgical History (Updated 04/27/20 @ 10:41 by Linda Servin) History of esophagogastroduodenoscopy (EGD) (Chronic 04/20/20) Social History (Updated 06/21/18 @ 15:39 by Bronwyn Hernandez RN) household members: alone occupational status: retired pets and animals: Yes pets and animals: cat(s) and dog(s) smoking status: Never smoker alcohol intake frequency: does not drink substance use type: does not use seatbelt use: sometimes MEDS/ALLERGIES Home Medications and Allergies Home Medications Medication Instructions Recorded Confirmed Type cinacalcet 30 mg tablet 90 mg PO DAILY tab 06/21/18 05/12/20 History Folbee Plus 1 tab PO BID tablet 07/07/18 05/12/20 Rx cyanocobalamin (vitamin B-12) 2,500 mcg PO QDAY #90 tab 11/23/18 05/12/20 Rx 2,500 mcg chewable tablet gentamicin 0.1 % topical cream 1 applic TOPICAL DIRECTED #15 g 05/24/19 05/12/20 Rx sevelamer carbonate 800 mg tablet 2,400 mg PO TIDCC #270 tab 05/24/19 05/12/20 Rx ferrous fumarate 324 mg (106 mg 324 mg PO QDAY #30 tab 09/27/19 05/12/20 Rx iron) tablet calcitriol 0.25 mcg capsule 0.25 mcg PO QDAY cap 03/27/20 05/12/20 History cholecalciferol (vitamin D3) 125 125 mcg PO QDAY #30 tab 03/27/20 05/12/20 Rx mcg (5,000 unit) tablet omeprazole 20 mg capsule,delayed 40 mg PO BID #90 cap 05/07/20 05/12/20 Rx release amlodipine 10 mg PO PRN PRN 05/12/20 05/12/20 History sevelamer carbonate 2,400 mg PO TIDWMEAL 05/12/20 05/12/20 History sevelamer carbonate 800 mg PO DAILY 05/12/20 05/12/20 History Allergies Allergy/AdvReac Type Severity Reaction Status Date / Time heparin Allergy Severe Difficulty Verified 05/12/20 01:55 Breathing levothyroxine sodium AdvReac Mild Itching Verified 05/12/20 09:47 [From Synthroid] EXAM Constitutional Vitals: Temp Pulse Resp BP Pulse Ox 37.0 C 82 20 141/78 99 05/12/20 07:08 05/12/20 07:08 05/12/20 07:08 05/12/20 07:08 05/12/20 07:08 Head Head exam: Present atraumatic and normocephalic Eye Eye exam: Present EOMI, normal appearance and PERRL; Absent scleral icterus Pupils: Present PERRL ENT ENT exam: Present mucous membranes moist Neck Neck exam: Present full ROM and normal inspection Respiratory Respiratory exam: Present normal respiratory exam and CTAB Cardiovascular Cardiovascular exam: Present normal rate and rhythm, RRR, +S1 and +S2; Absent JVD, rubs and systolic murmur GI/Abdominal GI/Abdominal exam: Present diminished bowel sounds, guarding, rebound and tenderness Additional comments: PD fluid present Extremities Exam Extremities exam: Present normal inspection and neurovascular intact; Absent calf tenderness, joint swelling and pedal edema Neurological Exam Neurological exam: Present CN II-XII intact, motor sensory deficit, oriented X3 and reflexes normal Psychiatric Psychiatric exam: Present normal affect and normal mood Skin Skin exam: Present intact and warm; Absent erythema, petechiae, rash and urticaria Additional comments: tanned Additional findings Additional findings: PD exit site not evaluated. DATA Data Completed and Pending Labs: Labs from last 24 hours 05/12/20 05/12/20 05/12/20 02:50 02:20 02:20 WBC RBC Hgb Hct MCV MCH MCHC RDW Plt Count MPV Gran % Lymph % (Auto) [place] % (Auto) Eos % (Auto) Baso % (Auto) Gran # Lymph # (Auto) [place] # (Auto) Eos # (Auto) Baso # (Auto) VBG Lactic Acid 0.8 Sodium 132 L Potassium 6.3 H* Chloride 89 L Carbon Dioxide 24 Anion Gap 19.0 H BUN 73 H Creatinine 12.9 H* GFR Calculation 3 Glucose 97 Calcium 7.7 L Total Bilirubin 0.3 AST 11 ALT 14 Alkaline Phosphatase 62 Total Protein 5.8 L Albumin 3.0 L Globulin 2.8 Albumin/Globulin Ratio 1.1 Peritoneal Source Peritoneal Peritoneal Color Colorless Peritoneal Appearance Cloudy Peritoneal RBC < [address] 100 Periton Nuc Cells 6728 Periton Neutrophils 99 Periton Lymphocytes 1 Peritoneal Monocytes Not Reportable Peritoneal Eosinophils Not Reportable Peritoneal Basophils Not Reportable Periton Mesothelial Not Reportable Periton Macrophages Not Reportable Peritoneal Plasma Cell Not Reportable Peritoneal Other Cells Not Reportable Peritoneal Diff Commnt Not Reportable 05/12/20 02:20 WBC 11.6 H RBC 3.04 L Hgb 9.9 L Hct 30.5 L MCV 100.3 H MCH 32.6 MCHC 32.5 RDW 14.6 H Plt Count 196 MPV 10.1 Gran % 91.7 H Lymph % (Auto) 5.4 L [place] % (Auto) 2.5 Eos % (Auto) 0.3 Baso % (Auto) 0.1 Gran # 10.61 H Lymph # (Auto) 0.63 L [place] # (Auto) 0.29 Eos # (Auto) 0.04 Baso # (Auto) 0.01 VBG Lactic Acid Sodium Potassium Chloride Carbon Dioxide Anion Gap BUN Creatinine GFR Calculation Glucose Calcium Total Bilirubin AST ALT Alkaline Phosphatase Total Protein Albumin Globulin Albumin/Globulin Ratio Peritoneal Source Peritoneal Color Peritoneal Appearance Peritoneal RBC Periton Tot Cells Ct Periton Nuc Cells Periton Neutrophils Periton Lymphocytes Peritoneal Monocytes Peritoneal Eosinophils Peritoneal Basophils Periton Mesothelial Periton Macrophages Peritoneal Plasma Cell Peritoneal Other Cells Peritoneal Diff Commnt Preliminary micro results at discharge 05/12/20 02:53 Gram Stain - Preliminary Peritoneal Fluid A/P Assessment and plan (1) Peritonitis associated with peritoneal dialysis: Status: Acute Comment: 2nd episoode, 1st was [place] Qualifiers: Encounter type: initial encounter Qualified Code(s): T85.71XA - Infection and inflammatory reaction due to peritoneal dialysis catheter, initial encounter (2) ESRD on peritoneal dialysis: Status: Acute Comment: Underdialyzed at last clinic visit due to decreased PD and residual urinary clearance (3) Polycystic kidney disease, autosomal dominant: Status: Acute Comment: Hepatic, pancreatic and Renal cysts with ESRD and on PD since 2013 Narrative A/P Narrative: 1. Vanco q48-72 hours 2. Follow up final labs Syringa labs obtained 05/11 and here. Both with [facility]. 3. Increase dialysis delivery 4. Regular diet with K restriction 5. Bowel regiment NO FLEETS ENEMAs 6. Anticipate 1 week ABx and 3 days hospital stay. 7. Trial reglan for gastroparesis but may worsen RLS. Time Spent With Patient Time: Total time spent is greater than 50% in coordination of care (as documented) at patient's floor/unit and/or counseling patient: Total time spent with greater than 50% in coordination of care (as documented) at patient's floor/unit and/or counseling patient:: Greater than 35 minutes
--- NOTE | 2020-05-12 07:49 | Internal Med History&Physical ---
HPI History of Present Illness Patient information: Note initiated : 05/12/20 at 7:46 am Service Date, if different from initiated Date: [] Patient: Pinky Castellon 69 y/o F admitted on 05/12/20 for Peritoneal Infection. Chief Complaint: [] History of present illness: Ms. Castellon is a 69 year old F Presents to the ED for peritoneal infection. She is a peritoneal dialysis patient syringa and had peritoneal fluid withdrawn the other day results came back consistent with infection. With cloudy thick peritoneal fluid. She came in last night because her peritoneal fluid was so thick and cloudy that she could run her dialysis and she called the dialysis nurse who told her to come in the ED. Is also having severe generalized crampy abdominal pain. Denies fever chills. This morning she did have some chest discomfort bilaterally as a press ure which came on gradually on its own while she was sitting in bed and gradually went away after an hour, no dyspnea. Also complains of constipation. Review of Systems: Pertinent positives as above. Denies headache/fever/chills/nausea/vomiting/cough/dyspnea/diarrhea. Remaining 10 point review of system reviewed negative PFSH PFSH All Active Problems (Updated 05/12/20 @ 08:32 by Santy Lauren MD) Polycystic kidney disease, autosomal dominant (Acute) Peritonitis associated with peritoneal dialysis (Acute) Sepsis (Acute) History of esophagogastroduodenoscopy (EGD) (Chronic 04/20/20) RLS (restless legs syndrome) (Acute) Polyp of duodenum (Acute) Peritonitis (Acute) Dizziness (Acute) Vomiting (Acute) Gentamicin toxicity (Acute) Peritoneal dialysis adequacy testing (Chronic) Nasal drainage (Chronic) Essential hypertension (Chronic) Flank pain (Chronic) Renal failure (Chronic) Cyst of right breast (Chronic) Sinusitis (Chronic) Gastritis (Chronic) Joint pain (Chronic) Hypertension (Chronic) Anemia (Chronic) Kidney pain (Chronic) Screen for colon cancer (Acute) GERD (gastroesophageal reflux disease) (Acute) Abdominal pain (Acute) ESRD on peritoneal dialysis (Acute) Hx of total knee arthroplasty (Acute) Hypothyroidism (Acute) Medical History (Updated 05/12/20 @ 08:32 by Santy Lauren MD) Abdominal pain (Acute) Anemia (Chronic) Cyst of right breast (Chronic) Essential hypertension (Chronic) Flank pain (Chronic) Gastritis (Chronic) GERD (gastroesophageal reflux disease) (Acute) Hypertension (Chronic) Hypothyroidism (Acute) Joint pain (Chronic) Kidney pain (Chronic) Nasal drainage (Chronic) Peritoneal dialysis adequacy testing (Chronic) Renal failure (Chronic) Screen for colon cancer (Acute) Sinusitis (Chronic) Surgical History (Updated 04/27/20 @ 10:41 by Linda Servin) History of esophagogastroduodenoscopy (EGD) (Chronic 04/20/20) Social History (Updated 06/21/18 @ 15:39 by Bronwyn Hernandez RN) household members: alone occupational status: retired pets and animals: Yes pets and animals: cat(s) and dog(s) smoking status: Never smoker alcohol intake frequency: does not drink substance use type: does not use seatbelt use: sometimes MEDS/ALLERGIES Home Medications and Allergies Home Medications Medication Instructions Recorded Confirmed Type cinacalcet 30 mg tablet 90 mg PO DAILY tab 06/21/18 05/12/20 History Folbee Plus 1 tab PO BID tablet 07/07/18 05/12/20 Rx cyanocobalamin (vitamin B-12) 2,500 mcg PO QDAY #90 tab 11/23/18 05/12/20 Rx 2,500 mcg chewable tablet gentamicin 0.1 % topical cream 1 applic TOPICAL DIRECTED #15 g 05/24/19 05/12/20 Rx sevelamer carbonate 800 mg tablet 2,400 mg PO TIDCC #270 tab 05/24/19 05/12/20 Rx ferrous fumarate 324 mg (106 mg 324 mg PO QDAY #30 tab 09/27/19 05/12/20 Rx iron) tablet calcitriol 0.25 mcg capsule 0.25 mcg PO QDAY cap 03/27/20 05/12/20 History cholecalciferol (vitamin D3) 125 125 mcg PO QDAY #30 tab 03/27/20 05/12/20 Rx mcg (5,000 unit) tablet omeprazole 20 mg capsule,delayed 40 mg PO BID #90 cap 05/07/20 05/12/20 Rx release amlodipine 10 mg PO PRN PRN 05/12/20 05/12/20 History sevelamer carbonate 2,400 mg PO TIDWMEAL 05/12/20 05/12/20 History sevelamer carbonate 800 mg PO DAILY 05/12/20 05/12/20 History Allergies Allergy/AdvReac Type Severity Reaction Status Date / Time heparin Allergy Severe Difficulty Verified 05/12/20 01:55 Breathing levothyroxine sodium Allergy Mild Itching Verified 05/12/20 01:55 [From Synthroid] EXAM Constitutional Vitals: Temp Pulse Resp BP Pulse Ox 98.6 F 82 20 141/78 99 05/12/20 07:08 05/12/20 07:08 05/12/20 07:08 05/12/20 07:08 05/12/20 07:08 Exam: General: Alert, Awake, No acute Distress Eyes/N/T: EOMI, PERRL, Head/Neck: neck supple, normocephalic atraumatic CV: RRR, 2/6SM, normal s1/s2 Pulm: Clear b/l, no wheezing/rhonchi/rales Abd: soft, generalized tenderness, +BS x4 Ext: no clubbing/cyanosis/ trace b/l LE edema Neuro: Alert, no focal deficits, moves all extremities, CN 2-12 grossly intact, symmetrical strength b/l upper/lower, sensations intact b/l upper/lower Skin: warm/dry DATA Data Completed and Pending Labs: Labs from last 24 hours 05/12/20 05/12/20 05/12/20 02:50 02:20 02:20 WBC RBC Hgb Hct MCV MCH MCHC RDW Plt Count MPV Gran % Lymph % (Auto) [place] % (Auto) Eos % (Auto) Baso % (Auto) Gran # Lymph # (Auto) [place] # (Auto) Eos # (Auto) Baso # (Auto) VBG Lactic Acid 0.8 Sodium 132 L Potassium 6.3 H* Chloride 89 L Carbon Dioxide 24 Anion Gap 19.0 H BUN 73 H Creatinine 12.9 H* GFR Calculation 3 Glucose 97 Calcium 7.7 L Total Bilirubin 0.3 AST 11 ALT 14 Alkaline Phosphatase 62 Total Protein 5.8 L Albumin 3.0 L Globulin 2.8 Albumin/Globulin Ratio 1.1 Peritoneal Source Peritoneal Peritoneal Color Colorless Peritoneal Appearance Cloudy Peritoneal RBC < [address] 100 Periton Nuc Cells 6728 Periton Neutrophils 99 Periton Lymphocytes 1 Peritoneal Monocytes Not Reportable Peritoneal Eosinophils Not Reportable Peritoneal Basophils Not Reportable Periton Mesothelial Not Reportable Periton Macrophages Not Reportable Peritoneal Plasma Cell Not Reportable Peritoneal Other Cells Not Reportable Peritoneal Diff Commnt Not Reportable 05/12/20 02:20 WBC 11.6 H RBC 3.04 L Hgb 9.9 L Hct 30.5 L MCV 100.3 H MCH 32.6 MCHC 32.5 RDW 14.6 H Plt Count 196 MPV 10.1 Gran % 91.7 H Lymph % (Auto) 5.4 L [place] % (Auto) 2.5 Eos % (Auto) 0.3 Baso % (Auto) 0.1 Gran # 10.61 H Lymph # (Auto) 0.63 L [place] # (Auto) 0.29 Eos # (Auto) 0.04 Baso # (Auto) 0.01 VBG Lactic Acid Sodium Potassium Chloride Carbon Dioxide Anion Gap BUN Creatinine GFR Calculation Glucose Calcium Total Bilirubin AST ALT Alkaline Phosphatase Total Protein Albumin Globulin Albumin/Globulin Ratio Peritoneal Source Peritoneal Color Peritoneal Appearance Peritoneal RBC Periton Tot Cells Ct Periton Nuc Cells Periton Neutrophils Periton Lymphocytes Peritoneal Monocytes Peritoneal Eosinophils Peritoneal Basophils Periton Mesothelial Periton Macrophages Peritoneal Plasma Cell Peritoneal Other Cells Peritoneal Diff Commnt Preliminary micro results at discharge 05/12/20 02:53 Gram Stain - Preliminary Peritoneal Fluid A/P Narrative A/P Narrative: A: *Peritonitis, peritoneal dialysis associated: *ESRD: On peritoneal dialysis *Anemia, chronic: *HTN: *GERD: * P: -Antibiotics per nephrology, ?via catheter -PD per nephrology -Pending culture results of peritoneal fluid -Continue home medications - -ppx: Heparin Time Spent With Patient Time: Total time spent is greater than 50% in coordination of care (as documented) at patient's floor/unit and/or counseling patient: QUALITY VTE Deep Vein Thrombosis/Pulmonary Embolism Present on Admission: No
[2020-05-12] MEDS ORDERED: DOCUSATE SODIUM 100 MG CAPSULE PO SCH (09:00)
[2020-05-12] MEDS ORDERED: POTASSIUM CHLORIDE 20 MEQ TABLET PO PRN (09:41)
[2020-05-12] MEDS ORDERED: SENNOSIDES 1 TABLET PO PRN (09:41)
[2020-05-12] MEDS ORDERED: POTASSIUM CHLORIDE 40 MEQ in DEXTROSE 5% IN WATER 500 ML IV PRN (09:41)
[2020-05-12] MEDS ORDERED: MAGNESIUM SULFATE 2 GM/50 ML BAG IV PRN (09:41)
[2020-05-12] MEDS ORDERED: IPRATROPIUM/ALBUTEROL 3 ML AMPUL.NEB NEB PRN (09:41)
[2020-05-12] MEDS ORDERED: SEVELAMER 800 MG TABLET PO SCH (10:30)
[2020-05-12] MEDS: SEVELAMER 800 MG TABLET PO SCH ×2 (13:24→17:30)
[2020-05-12] MEDS: ACETAMINOPHEN 325 MG TABLET PO PRN (13:31)
[2020-05-12] MEDS: POLYETHYLENE GLYCOL 3350 17 GM PACKET PO PRN (14:13)
[2020-05-12] MEDS: ONDANSETRON 4 MG/2 ML VIAL IV PRN (19:55)
[2020-05-12] MEDS: DOCUSATE SODIUM 100 MG CAPSULE PO SCH (20:49)
[2020-05-12] MEDS: OMEPRAZOLE 20 MG CAPSULE PO SCH (20:49)
[2020-05-12] MEDS: FOLIC ACID/VITAMIN B COMP W-C 1 TAB TABLET PO SCH (20:49)
[2020-05-12] MEDS ORDERED: SENNOSIDES 1 TABLET PO SCH (21:00)
[2020-05-13] MEDS: HYDROmorphone 0.5 MG/0.5 ML SYRINGE IV PRN ×9 (00:55→20:55)
[2020-05-13] MEDS: ACETAMINOPHEN 325 MG TABLET PO PRN ×2 (01:10→09:40)
[2020-05-13] MEDS: 0.9 % SODIUM CHLORIDE 10 ML SYRINGE IV SCH ×3 (05:54→20:35)
[2020-05-13 06:51] LABS: Basophils # (Auto) 0.01 K/mcL (0.00-0.30); Basophils % (Auto) 0.1 % (0.0-2.0); Eosinophils # (Auto) 0.13 K/mcL (0.00-0.70); Eosinophils % (Auto) 1.6 % (0.0-7.0); Granulocytes % (Auto) 86.8 % (38.0-78.0); Hematocrit 29.3 % (34.1-44.9); Hemoglobin 9.3 g/dL (11.2-15.7); Lymphocytes # (Auto) 0.69 K/mcL (1.50-4.80); Lymphocytes % (Auto) 8.4 % (15.5-49.0); Mean Cell Volume 102.4 fL (80.0-100.0); Mean Corpuscular HGB Conc 31.7 g/dL (31.0-36.0); Mean Platelet Volume 9.8 fL (7.4-10.4); Monocytes # (Auto) 0.25 K/mcL (0.10-0.90); Monocytes % (Auto) 3.1 % (1.0-12.0); Platelet Count 177 K/mcL (140-440); RBC 2.86 M/mcL (3.59-5.38); Red Cell Distribution Width 14.6 % (11.5-14.5); WBC 8.2 K/mcL (4.50-11.00)
--- NOTE | 2020-05-13 07:08 | Internal Med Progress Note ---
SUBJECTIVE Subjective Patient information: Note initiated : 05/13/20 at 7:05 am Service Date, if different from initiated Date: [] Patient: Pinky Castellon a 69 y/o F admitted on 05/12/20 for Peritoneal Infection. Chief Complaint: [] Interval history: History of present illness: Ms. Castellon is a 69 year old F Presents to the ED for peritoneal infection. She is a peritoneal dialysis patient syringa and had peritoneal fluid withdrawn the other day results came back consistent with infection. With cloudy thick peritoneal fluid. She came in last night because her peritoneal fluid was so thick and cloudy that she could run her dialysis and she called the dialysis nurse who told her to come in the ED. Is also having severe generalized crampy abdominal pain. Denies fever chills. This morning she did have some chest discomfort bilaterally as a pressure which came on gradually on its own while she was sitting in bed and gradually went away after an hour, no dyspnea. Also complains of constipation. 05/13 No bowel movement in 3 days. Has abdominal discomfort. Undergoing dialysis currently. Had episode of nausea vomiting last night. Constipation. Review of Systems: denies headache/fever/chills/chest or abdominal pain/cough/dyspnea/diarrhea. Otherwise see above. Constitutional Vitals: Vital Signs Temp Pulse Resp BP Pulse Ox 98.4 F 78 16 150/92 97 05/13/20 03:30 05/13/20 03:30 05/13/20 03:30 05/13/20 03:30 05/13/20 03:30 Period Temp Pulse Resp BP Sys/Thomas Pulse Ox Last 24 Hr 98.4 F-99.4 F 74-86 16-20 141-182/78-97 96-99 Intake and Output 05/12/20 05/13/20 05/13/20 21:59 05:59 13:59 Intake Total 480 180 Output Total 800 300 Balance -320 -120 Weight 85.139 kg Intake & Output: Intake & Output 05/12/20 05/13/20 05/13/20 21:59 05:59 13:59 Intake Total 480 180 Output Total 800 300 Balance -320 -120 Weight 85.139 kg Intake: Oral 480 180 Output: Void Amount 500 300 Emesis 300 Other: Meal Dinner Percent of Meal Consumed 100% Feeding Ability Independent Urine Appearance Clear Urine Color Bright Yellow Pale Urine Odor Normal Exam: General: Alert, Awake, No acute Distress Eyes/N/T: EOMI, Head/Neck: neck supple, CV: RRR, 2/6SM, Pulm: Clear b/l, no wheezing/rhonchi/rales Abd: soft, generalized tenderness, +BS x4 Ext: no clubbing/cyanosis/ trace b/l LE edema Neuro: Alert, no focal deficits, moves all extremities, Skin: warm/dry OBJ DATA Labs CBC & Chem 7: 05/13/20 05:28 05/13/20 05:28 Labs: Abnormal Lab Results 05/13/20 05/12/20 05/12/20 05:28 02:20 02:20 WBC 11.6 H RBC 2.86 L 3.04 L Hgb 9.3 L 9.9 L Hct 29.3 L 30.5 L MCV 102.4 H 100.3 H RDW 14.6 H 14.6 H Gran % 86.8 H 91.7 H Lymph % (Auto) 8.4 L 5.4 L Gran # 10.61 H Lymph # (Auto) 0.69 L 0.63 L Sodium 132 L Potassium 6.3 H* Chloride 89 L Anion Gap 19.0 H BUN 73 H Creatinine 12.9 H* Calcium 7.7 L Total Protein 5.8 L Albumin 3.0 L Meds: Medications Acetaminophen (Tylenol) 650 mg PO Q6HP PRN PRN Reason: PAIN/FEVER > 101 Last Admin: 05/13/20 01:10 Dose: 650 mg Documented by: Albuterol/Ipratropium (Duoneb) 3 ml NEB Q4HP PRN PRN Reason: Shortness Of Breath Amlodipine Besylate (Norvasc) 10 mg PO PRN PRN PRN Reason: Hypertension Calcitriol (Rocaltrol) 0.25 mcg PO QDAY [facility] Cinacalcet (Sensipar) 90 mg PO DAILY [facility] Cyanocobalamin (Vitamin B-12) 2,500 mcg PO QDAY [facility] Docusate Sodium (Colace) 100 mg PO BID [facility] Last Admin: 05/12/20 20:49 Dose: 100 mg Documented by: Hydromorphone HCl (Dilaudid) 0.5 mg IV Q2HP PRN; Protocol PRN Reason: Per Pain Protocol Last Admin: 05/13/20 05:53 Dose: 0.5 mg Documented by: Magnesium Sulfate (Magnesium Sulfate) 2 gm in 50 mls @ 50 mls/hr IV UD PRN PRN Reason: Magnesium </= 1.6 Lactulose (Cephulac) 20 gm PO DAILYP PRN PRN Reason: Constipation Multivit/Ca Carb/B Cmplx/FA/Prenat (Diatx) 1 tab PO BID [facility] Last Admin: 05/12/20 20:49 Dose: 1 tab Documented by: Omeprazole (Prilosec) 40 mg PO BID [facility] Last Admin: 05/12/20 20:49 Dose: 40 mg Documented by: Ondansetron HCl (Zofran) 4 mg IV Q4HP PRN PRN Reason: Nausea And Vomiting Last Admin: 05/12/20 19:55 Dose: 4 mg Documented by: Polyethylene Glycol (Miralax) 17 gm PO DAILYP PRN PRN Reason: Constipation Last Admin: 05/12/20 14:13 Dose: 17 gm Documented by: Potassium Chloride (Kdur) 40 meq PO UD PRN PRN Reason: Potassium < 3 Senna (Senokot) 2 tab PO DAILYP PRN PRN Reason: Constipation Sevelamer Carbonate (Renvela) 2,400 mg PO TIDCC [facility] Last Admin: 05/12/20 17:30 Dose: 2,400 mg Documented by: Sodium Chloride (Saline Flush) 10 ml IV Q8 [facility] Last Admin: 05/13/20 05:54 Dose: 10 ml Documented by: Vitamin D (Vitamin D3) 5,000 unit PO DAILY [facility] A/P Narrative A/P Narrative: A: *Peritonitis, peritoneal dialysis associated: -Leukocytosis resolved. -Gram stain of fluid with gram-positive bacillus *ESRD: On peritoneal dialysis *Anemia, chronic: *HTN: *GERD: *constipation P: -Antibiotics per nephrology, -PD per nephrology -Pending culture results of peritoneal fluid -Continue home medications -bowel regimen -ppx: Heparin full code Time Spent With Patient Time: Total time spent is greater than 50% in coordination of care (as documented) at patient's floor/unit and/or counseling patient: QUALITY VTE Deep Vein Thrombosis/Pulmonary Embolism Present on Admission: No
[2020-05-13 07:20] LABS: ALT/SGPT 11 U/l (0-40); AST/SGOT 9 U/l (0-37); Albumin 2.5 gm/dL (3.2-5.2); Albumin/Globulin Ratio 0.9 (1.0-2.3); Alkaline Phosphatase 59 U/L (39-117); Bilirubin,Direct < 0.2 mg/dL (0.0-0.3); Bilirubin,Total 0.3 mg/dL (0.0-1.0); Blood Urea Nitrogen 69 mg/dl (8-23); Calcium 7.6 mg/dl (8.6-10.4); Carbon Dioxide 23 mmol/L (22-30); Globulin 2.9 gm/dL (2.2-3.7); Glucose 115 mg/dL (70-105); Lactate Dehydrogenase 273 U/L (94-250); Phosphorous 4.5 mg/dL (2.7-4.5); Triglycerides 64 mg/dl (<150); Uric Acid 5.1 mg/dL (2.5-8.0)
[2020-05-13 07:25] LABS: Vancomycin,Random < 4.0 ug/mL
[2020-05-13] MEDS: LACTULOSE 20 GM/30 ML ORAL.SOL PO PRN (07:27)
[2020-05-13] MEDS: OMEPRAZOLE 20 MG CAPSULE PO SCH ×3 (07:27→21:19)
[2020-05-13 07:29] LABS: Chloride 92 mmol/L (96-108); Glomerular Filtration Rate 3
[2020-05-13] MEDS ORDERED: HYDROmorphone 0.5 MG/0.5 ML SYRINGE IV ONE ×2 (08:08→08:09)
[2020-05-13] MEDS: POLYETHYLENE GLYCOL 3350 17 GM PACKET PO PRN (08:56)
[2020-05-13] MEDS ORDERED: SEVELAMER CARBONATE 800 MG PO SCH (09:00)
[2020-05-13] MEDS ORDERED: CALCITRIOL 0.25 MCG CAPSULE PO SCH (09:00)
[2020-05-13] MEDS ORDERED: MINERAL OIL 1 DOSE ENEMA PR PRN (09:08)
[2020-05-13] MEDS ORDERED: VANCOMYCIN 1,500 MG in 0.9 % SODIUM CHLORIDE 500 ML IV ONE (09:25)
[2020-05-13] MEDS ORDERED: BISACODYL 5 MG TABLET PO ONE (09:35)
[2020-05-13] MEDS: FOLIC ACID/VITAMIN B COMP W-C 1 TAB TABLET PO SCH ×3 (09:40→21:19)
[2020-05-13] MEDS: CYANOCOBALAMIN (VITAMIN B-12) 500 MCG TABLET PO SCH (09:41)
[2020-05-13] MEDS: CINACALCET 30 MG TABLET PO SCH (09:45)
[2020-05-13] MEDS: DOCUSATE SODIUM 100 MG CAPSULE PO SCH ×3 (09:46→21:19)
[2020-05-13] MEDS: SEVELAMER 800 MG TABLET PO SCH ×3 (09:47→17:07)
[2020-05-13] MEDS: VITAMIN D3 5,000 UNIT CAPSULE PO SCH (09:47)
[2020-05-13 12:45] LABS: Nucleated Cel,Peritoneal Fluid 5327 /cumm; RBC,Peritoneal Fluid < 50000 /cumm
[2020-05-13 13:10] LABS: Macrophages,Peritoneal Fluid 7 %; Monocyte,Peritoneal Fluid 1 %; Neutrophils,Peritoneal Fluid 90 %
[2020-05-13] MEDS ORDERED: CEFEPIME 1 GM VIAL IV SCH ×2 (13:30→20:00)
--- NOTE | 2020-05-13 14:33 | Nephrology Progress Note ---
SUBJECTIVE Subjective Patient information: Note initiated : 05/13/20 at 2:31 pm Service Date, if different from initiated Date: [] Patient: Pinky Castellon 69 y/o F admitted on 05/12/20 for Peritoneal Infection. Chief Complaint: [Belly pain] 2nd episode of peritonitis since starting peritoneal dialysis ~2013. 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 Growing Gm Pos Bacilli on culture from [facility] emergency room. Constipation also an issue About a month ago had for antral and prepyloric polyps removed endoscopically Has chronic abdominal pain and bloating which may be related to gastroparesis but upper GI and small bowel follow-through did not show any gastric outlet obstruction prior to the polyp resection. Laboratory Tests 03/19/20 05/13/20 05/13/20 06:00 05:28 05:28 WBC 8.2 Hgb 9.3 L Hct 29.3 L Plt Count 177 Sodium 133 Potassium 5.9 H* Chloride 92 L Carbon Dioxide 23 BUN 69 H Creatinine 11.7 H* Glucose 115 H Calcium 7.6 L Phosphorus 4.5 Magnesium 2.2 GGT 21 AST 9 Alkaline Phosphatase 59 Lactate Dehydrogenase 273 H Albumin 2.5 L PTH Intact 334 H Periton Nuc Cells 5327 Periton Neutrophils 90% Random Vancomycin < 4.0 Gram Stain Final 05/12/20-1520 PRL RESULT: FEW TISSUE CELLS MANY POLYS RARE GRAM POSITIVE BACILLI Body Fluid Culture Preliminary 05/13/20-1254 PRL Organism 1 Enterobacter Cloacae Complex KUB post oral contrast: (05/13/2020) FINDINGS: Water-soluble enteric contrast was administered and films were obtained four hours later. The stomach, small large bowel are well-opacified and demonstrate minimal symmetric dilatation patible with mild ileus. No evidence of bowel obstruction. Tube overlies the right lower pelvis. No free air, soft tissue mass or pathologic calcification IMPRESSION: No evidence of bowel obstruction. Mild ileus Constitutional Vitals: Vital Signs Temp Pulse Resp BP Pulse Ox 37.3 C H 102 H 20 160/95 97 05/13/20 12:00 05/13/20 12:00 05/13/20 12:00 05/13/20 12:00 05/13/20 12:00 Period Temp Pulse Resp BP Sys/Thomas Pulse Ox Last 24 Hr 36.9 C-37.3 C 74-102 16-24 150-198/86-97 96-99 Intake and Output 05/13/20 05/13/20 05/13/20 05:59 13:59 21:59 Intake Total 180 500 Output Total 300 250 Balance -120 250 Weight 85.139 kg 85.139 kg Patient Weight 05/14/20 05:59 Weight 85.139 kg Intake & Output: Intake & Output 05/13/20 05/13/20 05/13/20 05:59 13:59 21:59 Intake Total 180 500 Output Total 300 250 Balance -120 250 Weight 85.139 kg 85.139 kg Intake: IV 500 Vancomycin 1,500 mg In Sodium 500 Chloride 0.9% 500 ml @ 333.3 mls/hr IV ONCE ONE Rx#: [id number] Oral 180 Output: Void Amount 300 250 Other: Meal Lunch Percent of Meal Consumed Refused Urine Appearance Clear Clear Urine Color Pale Pale A/P Narrative A/P Narrative: 1. Vanco q48 Dedosed todat 2. Follow up final labs [facility] labs obtained 05/11 and here. Both with [facility]. 3. Increase dialysis delivery 4. Regular diet with K restriction 5. Bowel regiment NO FLEETS ENEMAs 6. Anticipate 1 week ABx and 3 days hospital stay. 7. Trial reglan for gastroparesis but may worsen RLS. 8. Despite report by two separate labs og Gm positive bacilli, what is growing is Enterobacter cloacae Given poor experience with Gentamicin in the past Cefepime has been started and can complete course with high dose cipro once some inprovent occures. 9. Go back to tidal PD as abd pain persists. Time Spent With Patient Time: Total time spent is greater than 50% in coordination of care (as documented) at patient's floor/unit and/or counseling patient: Total time spent with greater than 50% in coordination of care (as documented) at patient's floor/unit and/or counseling patient:: Greater than 35 minutes
[2020-05-13] MEDS ORDERED: CEFEPIME 1 GM VIAL IV ONE (16:31)
[2020-05-13] MEDS: POLYETHYLENE GLYCOL 3350 17 GM PACKET PO SCH ×3 (16:37→21:19)
--- NOTE | 2020-05-13 16:47 | XRay Report ---
CLINICAL INFORMATION: ?constipation vs other. WITH ORAL CONTRAST. pain COMPARISON: Supine abdomen 04/28/2014 FINDINGS: Water-soluble enteric contrast was administered and films were obtained four hours later. The stomach, small large bowel are well-opacified and demonstrate minimal symmetric dilatation patible with mild ileus. No evidence of bowel obstruction. Tube overlies the right lower pelvis. No free air, soft tissue mass or pathologic calcification IMPRESSION: No evidence of bowel obstruction. Mild ileus Interpreted and Authenticated by: George Ortega 05/13/20
[2020-05-13] MEDS: traMADol 50 MG TABLET PO SCH (19:09)
[2020-05-13] MEDS: amLODIPine 5 MG TABLET PO PRN (19:12)
[2020-05-13] MEDS ORDERED: traMADol 50 MG TABLET PO ONE (19:14)
[2020-05-13] MEDS: MELATONIN 3 MG TABLET PO SCH ×2 (20:34→21:19)
[2020-05-13] MEDS: ONDANSETRON 4 MG/2 ML VIAL IV PRN (20:44)
[2020-05-13] MEDS: ACETAMINOPHEN 1,000 MG/100 ML BOTTLE IV SCH (22:01)
[2020-05-14] MEDS: HYDROmorphone 0.5 MG/0.5 ML SYRINGE IV PRN ×4 (00:10→12:03)
[2020-05-14] MEDS: ACETAMINOPHEN 1,000 MG/100 ML BOTTLE IV SCH ×3 (05:28→21:56)
[2020-05-14] MEDS: 0.9 % SODIUM CHLORIDE 10 ML SYRINGE IV SCH ×3 (05:29→21:57)
[2020-05-14 07:07] LABS: Blood Urea Nitrogen 61 mg/dl (8-23); Calcium 7.5 mg/dl (8.6-10.4); Carbon Dioxide 24 mmol/L (22-30); Glucose 109 mg/dL (70-105)
[2020-05-14 07:46] LABS: Chloride 92 mmol/L (96-108); Glomerular Filtration Rate 3
--- NOTE | 2020-05-14 07:56 | Internal Med Progress Note ---
SUBJECTIVE Subjective Patient information: Note initiated : 05/14/20 at 7:52 am Service Date, if different from initiated Date: [] Patient: Pinky Castellon a 69 y/o F admitted on 05/12/20 for Peritoneal Infection. Chief Complaint: [] Interval history: History of present illness: Ms. Castellon is a 69 year old F Presents to the ED for peritoneal infection. She is a peritoneal dialysis patient [facility] and had peritoneal fluid withdrawn the other day results came back consistent with infection. With cloudy thick peritoneal fluid. She came in last night because her peritoneal fluid was so thick and cloudy that she could run her dialysis and she called the dialysis nurse who told her to come in the ED. Is also having severe generalized crampy abdominal pain. Denies fever chills. This morning she did have some chest discomfort bilaterally as a pressure which came on gradually on its own while she was sitting in bed and gradually went away after an hour, no dyspnea. Also complains of constipation. 05/13 No bowel movement in 3 days. Has abdominal discomfort. Undergoing dialysis currently. Had episode of nausea vomiting last night. Constipation. 05/14 abd pain with end of PD cycles, states when straining it hurts. Episode of nausea/vomiting after taking evening medications last night. No other issues. Abdominal x-ray doing mild ileus. Review of Systems: denies headache/fever/chills/chest pain/cough/dyspnea/diarrhea. Otherwise see above. Constitutional Vitals: Vital Signs Temp Pulse Resp BP Pulse Ox 97.7 F 82 20 134/85 95 05/14/20 07:11 05/14/20 07:11 05/14/20 07:11 05/14/20 07:11 05/14/20 07:11 Period Temp Pulse Resp BP Sys/Thomas Pulse Ox Last 24 Hr 97.7 F-100.4 F 81-102 14-24 126-198/84-95 95-97 Intake and Output 05/13/20 05/14/20 05/14/20 21:59 05:59 13:59 Intake Total 150 Output Total 600 Balance -600 150 Weight 86.409 kg Intake & Output: Intake & Output 05/13/20 05/14/20 05/14/20 21:59 05:59 13:59 Intake Total 150 Output Total 600 Balance -600 150 Weight 86.409 kg Intake: IV 100 Oral 50 Output: Void Amount 125 Urine/Stool Mix 400 Emesis 75 Other: Meal Lunch Percent of Meal Consumed Refused Urine Appearance Clear Urine Color Pale Stool Size Large Stool Color Brown Stool Consistency Liquid Loose Exam: General: Alert, Awake, No acute Distress Eyes/N/T: EOMI, Head/Neck: neck supple, CV: RRR, 2/6SM, Pulm: Clear b/l, no wheezing/rhonchi/rales Abd: soft, generalized tenderness, +BS x4 Ext: no clubbing/cyanosis/ trace b/l LE edema Neuro: Alert, no focal deficits, moves all extremities, Skin: warm/dry OBJ DATA Labs CBC & Chem 7: 05/13/20 05:28 05/14/20 05:30 Labs: Abnormal Lab Results 05/14/20 05/14/20 05/13/20 05:30 05:30 05:28 WBC RBC Hgb Hct MCV RDW Gran % Lymph % (Auto) Gran # Lymph # (Auto) Sodium Potassium 5.5 H 5.9 H* Chloride 92 L 92 L Anion Gap 17.0 H 18.0 H BUN 61 H 69 H Creatinine 10.5 H* 11.7 H* Glucose 109 H 115 H Calcium 7.5 L 7.6 L Lactate Dehydrogenase 273 H Total Protein 5.4 L Albumin 2.5 L Albumin/Globulin Ratio 0.9 L PTH Intact 259.0 H 05/13/20 05/12/20 05/12/20 05:28 02:20 02:20 WBC 11.6 H RBC 2.86 L 3.04 L Hgb 9.3 L 9.9 L Hct 29.3 L 30.5 L MCV 102.4 H 100.3 H RDW 14.6 H 14.6 H Gran % 86.8 H 91.7 H Lymph % (Auto) 8.4 L 5.4 L Gran # 10.61 H Lymph # (Auto) 0.69 L 0.63 L Sodium 132 L Potassium 6.3 H* Chloride 89 L Anion Gap 19.0 H BUN 73 H Creatinine 12.9 H* Glucose Calcium 7.7 L Lactate Dehydrogenase Total Protein 5.8 L Albumin 3.0 L Albumin/Globulin Ratio PTH Intact Meds: Medications Albuterol/Ipratropium (Duoneb) 3 ml NEB Q4HP PRN PRN Reason: Shortness Of Breath Amlodipine Besylate (Norvasc) 10 mg PO PRN PRN PRN Reason: Hypertension Last Admin: 05/13/20 19:12 Dose: 10 mg Documented by: Calcitriol (Rocaltrol) 0.5 mcg PO DAILY [facility] Cefepime HCl (Maxipime) 1.5 gm IV Q24H [facility]; Protocol Last Admin: 05/13/20 19:18 Dose: 1.5 gm Documented by: Cinacalcet (Sensipar) 90 mg PO DAILY [facility] Last Admin: 05/13/20 09:45 Dose: 90 mg Documented by: Cyanocobalamin (Vitamin B-12) 2,500 mcg PO QDAY [facility] Last Admin: 05/13/20 09:41 Dose: 2,500 mcg Documented by: Docusate Sodium (Colace) 200 mg PO BID [facility] Last Admin: 05/13/20 21:19 Dose: Not Given Documented by: Hydromorphone HCl (Dilaudid) 0.5 mg IV Q2HP PRN; Protocol PRN Reason: Per Pain Protocol Last Admin: 05/14/20 06:41 Dose: 0.5 mg Documented by: Magnesium Sulfate (Magnesium Sulfate) 2 gm in 50 mls @ 50 mls/hr IV UD PRN PRN Reason: Magnesium </= 1.6 Acetaminophen (Ofirmev) 1,000 mg in 100 mls @ 200 mls/hr IV Q8 [facility]; Protocol Last Admin: 05/14/20 05:28 Dose: 200 mls/hr Documented by: Lactulose (Cephulac) 20 gm PO DAILYP PRN PRN Reason: Constipation Last Admin: 05/13/20 07:27 Dose: 20 gm Documented by: Melatonin (Melatonin 3mg Tablet) 3 mg PO QHS [facility] Last Admin: 05/13/20 21:19 Dose: Not Given Documented by: Mineral Oil (Mineral Oil Enema) 1 dose CA DAILYP PRN PRN Reason: Constipation Multivit/Ca Carb/B Cmplx/FA/Prenat (Diatx) 1 tab PO BID [facility] Last Admin: 05/13/20 21:19 Dose: Not Given Documented by: Omeprazole (Prilosec) 40 mg PO BID [facility] Last Admin: 05/13/20 21:19 Dose: Not Given Documented by: Ondansetron HCl (Zofran) 4 mg IV Q4HP PRN PRN Reason: Nausea And Vomiting Last Admin: 05/13/20 20:44 Dose: 4 mg Documented by: Polyethylene Glycol (Miralax) 17 gm PO DAILYP PRN PRN Reason: Constipation Last Admin: 05/13/20 08:56 Dose: 17 gm Documented by: Polyethylene Glycol (Miralax) 17 gm PO TID [facility] Last Admin: 05/13/20 21:19 Dose: Not Given Documented by: Sevelamer Carbonate (Renvela) 2,400 mg PO TIDCC [facility] Last Admin: 05/13/20 17:07 Dose: Not Given Documented by: Sodium Chloride (Saline Flush) 10 ml IV Q8 [facility] Last Admin: 05/14/20 05:29 Dose: 10 ml Documented by: Tramadol HCl (Ultram) 50 mg PO Q6HP [facility]; Protocol Last Admin: 05/13/20 19:09 Dose: 50 mg Documented by: Vitamin D (Vitamin D3) 5,000 unit PO DAILY [facility] Last Admin: 05/13/20 09:47 Dose: 5,000 unit Documented by: A/P Narrative A/P Narrative: A: *Peritonitis, peritoneal dialysis associated: growing Enterobacter Cloacae, susceptible to current abx cefepime -Leukocytosis resolved. *ESRD: On peritoneal dialysis *Anemia, chronic: *HTN: *GERD: *mild ileus: P: -transition to cipro upon d/c -PD per nephrology -Continue home medications -bowel regimen -ppx: Heparin Time Spent With Patient Time: Total time spent is greater than 50% in coordination of care (as documented) at patient's floor/unit and/or counseling patient: QUALITY VTE Deep Vein Thrombosis/Pulmonary Embolism Present on Admission: No
[2020-05-14] MEDS ORDERED: KETOROLAC 60 MG/2 ML VIAL IM ONE (08:45)
--- NOTE | 2020-05-14 09:02 | Nephrology Progress Note ---
SUBJECTIVE Subjective Patient information: Note initiated : 05/14/20 at 9:00 am Service Date, if different from initiated Date: [] Patient: Pinky Castellon 69 y/o F admitted on 05/12/20 for Peritoneal Infection. Chief Complaint: tmax 38C 05/13/2020 at 1600 BP 126-160/84-94 I/O 1640cc/1425cc; 86.4kg on 05/13/2020 Constitutional Vitals: Vital Signs Temp Pulse Resp BP Pulse Ox 36.5 C 82 20 134/85 95 05/14/20 07:11 05/14/20 07:11 05/14/20 07:11 05/14/20 07:11 05/14/20 07:11 Period Temp Pulse Resp BP Sys/Thomas Pulse Ox Last 24 Hr 36.5 C-38.0 C 81-102 14-20 126-160/84-95 95-97 Intake and Output 05/13/20 05/14/20 05/14/20 21:59 05:59 13:59 Intake Total 150 Output Total 600 Balance -600 150 Weight 86.409 kg general appears in mild distress 2/2 abdominal pain CV RRR, + radial pulse resp non labored respirations, no adventitious sounds over anterior aspect extremities - unable to accurately assess - as soon as I touched her leg she complained of pain. Intake & Output: Intake & Output 05/13/20 05/14/20 05/14/20 21:59 05:59 13:59 Intake Total 150 Output Total 600 Balance -600 150 Weight 86.409 kg Intake: IV 100 Oral 50 Output: Void Amount 125 Urine/Stool Mix 400 Emesis 75 Other: Meal Lunch Percent of Meal Consumed Refused Urine Appearance Clear Urine Color Pale Stool Size Large Stool Color Brown Stool Consistency Liquid Loose A/P Assessment and plan (1) Peritonitis associated with peritoneal dialysis: Status: Acute Comment: 2nd episoode, 1st was [place] Qualifiers: Encounter type: initial encounter Qualified Code(s): T85.71XA - Infection and inflammatory reaction due to peritoneal dialysis catheter, initial encounter (2) ESRD on peritoneal dialysis: Status: Acute Comment: Underdialyzed at last clinic visit due to decreased PD and residual urinary cl earance Narrative A/P Narrative: 05/13/2020 abdominal x-ray no evidence of bowel obstruction. Mild ileus. 05/12/2020 PD fluid culture Enterobacter cloacae, gram-negative bacillus identification and susceptibility to follow 05/12/2020 blood culture no growth to date Covered with cefepime. she's above her dry weight. PD tonight, 12 hours, 6 cycles, 1.8L each, tidal, 2.5% with 300cc last fill. 1 gram cefepime intraperitoneal dwell for at least 6 hours in am follow up cultures for GNB, will probably need a total of 3 weeks IP antibiotics with weekly visits with the PD RN once she gets discharged, until resolution of peritonitis. am RFP acid-base Bicarbonate 24, maintained with dialysis bone-mineral metabolism corrected Ca 8.7, phos 4.5- Mg 2.2 (05/13/2020). [id number] at goal BUN/ K 61/5.5. mild hyperkalemia, improving. nightly PD hematologic hemoglobin 9.3; monitor check iron Tsat ferritin Time Spent With Patient Time: Total time spent is greater than 50% in coordination of care (as documented) at patient's floor/unit and/or counseling patient:
[2020-05-14] MEDS: POLYETHYLENE GLYCOL 3350 17 GM PACKET PO SCH ×4 (10:08→21:04)
[2020-05-14] MEDS: FOLIC ACID/VITAMIN B COMP W-C 1 TAB TABLET PO SCH ×2 (10:08→20:59)
[2020-05-14] MEDS: SEVELAMER 800 MG TABLET PO SCH ×3 (10:08→17:44)
[2020-05-14] MEDS: OMEPRAZOLE 20 MG CAPSULE PO SCH ×3 (10:09→20:59)
[2020-05-14] MEDS: VITAMIN D3 5,000 UNIT CAPSULE PO SCH (11:23)
[2020-05-14] MEDS: CYANOCOBALAMIN (VITAMIN B-12) 500 MCG TABLET PO SCH (11:24)
[2020-05-14] MEDS: CINACALCET 30 MG TABLET PO SCH (12:17)
[2020-05-14] MEDS: CALCITRIOL 0.25 MCG CAPSULE PO SCH (13:38)
[2020-05-14] MEDS: DOCUSATE SODIUM 100 MG CAPSULE PO SCH ×2 (13:39→20:59)
[2020-05-14 14:12] LABS: Nucleated Cel,Peritoneal Fluid 4929 /cumm; RBC,Peritoneal Fluid < 50000 /cumm
[2020-05-14 14:15] LABS: Eosinophils,Peritoneal Fluid 1 %; Macrophages,Peritoneal Fluid 1 %; Monocyte,Peritoneal Fluid 2 %; Neutrophils,Peritoneal Fluid 92 %
--- NOTE | 2020-05-14 14:49 | Discharge Summary ---
Discharge Provider Provider Patient information: Note initiated : 05/14/20 at 2:47 pm Service Date, if different from initiated Date: [] Patient: Pinky Castellon 69 y/o F admitted on 05/12/20 for Peritoneal Infection. Chief Complaint: [] Date of admission: 05/12/20 03:20 Primary care physician: Brad Varma Consults: 05/12/20 Consult to Physician [CONS] Stat Comment: Consulting Provider: Hugo Crump Reason For Exam: Physician to Consult 05/12/20 02:53 Consult to Physician [CONS] Routine Comment: Consulting Provider: Santy Lauren Reason For Exam: Physician to Consult Discharge Meds Discharge Medications Home Medications cinacalcet 30 mg tablet 90 mg PO DAILY tab 06/21/18 [History Confirmed 05/12/20 Last Taken 05/11/20 09:00] Folbee Plus 1 tab PO BID tablet 07/07/18 [Rx Confirmed 05/12/20 Last Taken 05/11/20 09:00] cyanocobalamin (vitamin B-12) 2,500 mcg chewable tablet 2,500 mcg PO QDAY #90 tab 11/23/18 [Rx Confirmed 05/12/20 Last Taken 05/11/20 09:00] gentamicin 0.1 % topical cream 1 applic TOPICAL DIRECTED #15 g 05/24/19 [Rx Confirmed 05/12/20 Last Taken 05/11/20 20:00] sevelamer carbonate 800 mg tablet 2,400 mg PO TIDCC #270 tab 05/24/19 [Rx Confirmed 05/12/20 Last Taken 05/11/20 12:00] ferrous fumarate 324 mg (106 mg iron) tablet 324 mg PO QDAY #30 tab 09/27/19 [Rx Confirmed 05/12/20 Last Taken 05/11/20 09:00] calcitriol 0.25 mcg capsule 0.25 mcg PO QDAY cap 03/27/20 [History Confirmed 05/12/20 Last Taken 05/11/20 09:00] cholecalciferol (vitamin D3) 125 mcg (5,000 unit) tablet 125 mcg PO QDAY #30 tab 03/27/20 [Rx Confirmed 05/12/20 Last Taken 05/11/20 09:00] omeprazole 20 mg capsule,delayed release 40 mg PO BID #90 cap 05/07/20 [Rx Confirmed 05/12/20 Last Taken 05/11/20 06:00] amlodipine 10 mg PO PRN PRN 05/12/20 [History Confirmed 05/12/20 Last Taken 05/11/20 11:00] sevelamer carbonate 2,400 mg PO TIDWMEAL 05/12/20 [History Confirmed 05/12/20 Last Taken 05/11/20 12:00] sevelamer carbonate 800 mg PO DAILY 05/12/20 [History Confirmed 05/12/20 Last Taken 05/11/20 14:00] COURSE Hospital Course Hospital course: History of present illness: Ms. Castellon is a 69 year old F Presents to the ED for peritoneal infection. She is a peritoneal dialysis patient syringa and had peritoneal fluid withdrawn the other day results came back consistent with infection. With cloudy thick peritoneal fluid. She came in last night because her peritoneal fluid was so thick and cloudy that she could run her dialysis and she called the dialysis nurse who told her to come in the ED. Is also having severe generalized crampy abdominal pain. Denies fever chills. This morning she did have some chest discomfort bilaterally as a pressure which came on gradually on its own while she was sitting in bed and gradually went away after an hour, no dyspnea. Also complains of constipation. 05/13 No bowel movement in 3 days. Has abdominal discomfort. Undergoing dialysis currently. Had episode of nausea vomiting last night. Constipation. 05/14 abd pain with end of PD cycles, states when straining it hurts. Episode of nausea/vomiting after taking evening medications last night. No other issues. Abdominal x-ray doing mild ileus. A: *Peritonitis, peritoneal dialysis associated: growing Enterobacter Cloacae, susceptible to current abx cefepime -Leukocytosis resolved. *ESRD: On peritoneal dialysis *Anemia, chronic: *HTN: *GERD: *mild ileus: Discharge diagnosis: Peritonitis from peritoneal dialysis Secondary discharge diagnosis: End-stage renal disease anemia hypertension GERD mild ileus Time Spent with Patient Time attestation: Total time spent providing and/or coordinating discharge services: Time spent: Greater than 30 minutes EXAM Constitutional Vitals: Temp Pulse Resp BP Pulse Ox 98.6 F 90 18 125/84 95 05/14/20 12:00 05/14/20 12:00 05/14/20 12:00 05/14/20 12:00 05/14/20 12:00 Discharge Data Data Completed and Pending Labs on day of discharge: Labs from last 24 hours 05/14/20 05/14/20 05/14/20 08:45 05:30 05:30 Sodium 133 Potassium 5.5 H Chloride 92 L Carbon Dioxide 24 Anion Gap 17.0 H BUN 61 H Creatinine 10.5 H* GFR Calculation 3 Glucose 109 H Calcium 7.5 L PTH Intact 259.0 H Peritoneal Source Peritoneal Peritoneal Color Pale yellow Peritoneal Appearance Hazy Peritoneal RBC < [address] 100 Periton Nuc Cells 4929 Periton Neutrophils 92 Periton Lymphocytes 4 Peritoneal Monocytes 2 Peritoneal Eosinophils 1 Peritoneal Basophils Not Reportable Periton Mesothelial Not Reportable Periton Macrophages 1 Peritoneal Plasma Cell Not Reportable Peritoneal Other Cells Not Reportable Peritoneal Diff Commnt Not Reportable Preliminary micro results at discharge 05/12/20 02:25 Blood Culture - Preliminary Blood 05/12/20 02:20 Blood Culture - Preliminary Blood Discharge Plan Patient/Caregiver Discharge Instructions Activity: increase activity as tolerated Diet: Renal Prescriptions: Continued cyanocobalamin (vitamin B-12) 2,500 mcg tablet,chewable 2,500 mcg PO QDAY Qty: 90 RF: 1 sevelamer carbonate 800 mg tablet 2,400 mg PO TIDCC Qty: 270 RF: 12 gentamicin 0.1 % cream 1 applic TOPICAL DIRECTED Qty: 15 RF: 12 ferrous fumarate 324 mg (106 mg iron) tablet 324 mg PO QDAY Qty: 30 RF: 2 calcitriol 0.25 mcg capsule 0.25 mcg PO QDAY RF: 0 cholecalciferol (vitamin D3) [Vitamin D3] 125 mcg (5,000 unit) tablet 125 mcg PO QDAY Qty: 30 RF: 11 omeprazole 20 mg capsule,delayed release(DR/EC) 40 mg PO BID Qty: 90 RF: 3 cinacalcet 30 mg tablet 90 mg PO DAILY RF: 0 Hold Instructions: Doctor's Order Folbee Plus 1 TAB tablet 1 tab PO BID RF: 0 amlodipine 5 mg tablet 10 mg PO PRN PRN (Reason: Hypertension) RF: 0 sevelamer carbonate 800 mg PO DAILY RF: 0 sevelamer carbonate 800 mg tablet 2,400 mg PO TIDWMEAL RF: 0 Follow Up Plan Follow up with: Santy Lauren MD [Physician] - Brad Varma MD [Primary Care Provider] - Patient Disposition: Xfer SNF Prognosis: Fair Rehab Potential: Fair I certify that the patient requires SNF services: Yes Overall status at discharge: patient is progressing back to baseline QUALITY VTE Deep Vein Thrombosis/Pulmonary Embolism Present on Admission: No
[2020-05-14] MEDS: ONDANSETRON 4 MG/2 ML VIAL IV PRN (16:14)
[2020-05-14] MEDS ORDERED: CEFEPIME 2 GM VIAL IV SCH (20:00)
[2020-05-14] MEDS: MELATONIN 3 MG TABLET PO SCH (20:59)
[2020-05-15] MEDS: HYDROmorphone 0.5 MG/0.5 ML SYRINGE IV PRN ×3 (04:55→23:18)
[2020-05-15] MEDS: ACETAMINOPHEN 1,000 MG/100 ML BOTTLE IV SCH ×3 (05:58→21:45)
[2020-05-15] MEDS: 0.9 % SODIUM CHLORIDE 10 ML SYRINGE IV SCH ×3 (05:58→21:09)
--- NOTE | 2020-05-15 07:03 | Internal Med Progress Note ---
SUBJECTIVE Subjective Patient information: Note initiated : 05/15/20 at 7:01 am Service Date, if different from initiated Date: [] Patient: Pinky Castellon 69 y/o F admitted on 05/12/20 for Peritoneal Infection. Chief Complaint: [] Interval history: History of present illness: Ms. Castellon is a 69 year old F Presents to the ED for peritoneal infection. She is a peritoneal dialysis patient syringa and had peritoneal fluid withdrawn the other day results came back consistent with infection. With cloudy thick peritoneal fluid. She came in last night because her peritoneal fluid was so thick and cloudy that she could run her dialysis and she called the dialysis nurse who told her to come in the ED. Is also having severe generalized crampy abdominal pain. Denies fever chills. This morning she did have some chest discomfort bilaterally as a pressure which came on gradually on its own while she was sitting in bed and gradually went away after an hour, no dyspnea. Also complains of constipation. 05/13 No bowel movement in 3 days. Has abdominal discomfort. Undergoing dialysis currently. Had episode of nausea vomiting last night. Constipation. 05/14 abd pain with end of PD cycles, states when straining it hurts. Episode of nausea/vomiting after taking evening medications last night. No other issues. Abdominal x-ray doing mild ileus. 05/15 Appears comfortable on visit this morning. But does complain of abdominal discomfort. She has some emesis last night. Afebrile. Hopefully discharge soon to rehab versus home health. Review of Systems: denies headache/fever/chills/chest pain/cough/dyspnea/diarrhea. Otherwise see [facility]. Constitutional Vitals: Vital Signs Temp Pulse Resp BP Pulse Ox 97.4 F 83 16 135/85 99 05/15/20 02:55 05/15/20 02:55 05/15/20 02:55 05/15/20 02:55 05/15/20 02:55 Period Temp Pulse Resp BP Sys/Thomas Pulse Ox Last 24 Hr 97.4 F-98.6 F 78-90 16-22 125-141/84-87 95-99 Intake and Output 05/14/20 05/15/20 05/15/20 21:59 05:59 13:59 Intake Total 220 350 Output Total 125 350 Balance 95 0 Weight 86.863 kg Intake & Output: Intake & Output 05/14/20 05/15/20 05/15/20 21:59 05:59 13:59 Intake Total 220 350 Output Total 125 350 Balance 95 0 Weight 86.863 kg Intake: IV 100 100 Oral 120 250 Output: Void Amount 100 350 Emesis 25 Other: Meal Dinner Percent of Meal Consumed 100% Feeding Ability Independent Urine Appearance Clear Urine Color Pale Exam: General: Alert, Awake, No acute Distress Eyes/N/T: EOMI, Head/Neck: neck supple, CV: RRR, 2/6SM, Pulm: Clear b/l, no wheezing/rhonchi/rales Abd: soft, generalized tenderness, +BS x4 Ext: no clubbing/cyanosis/ trace b/l LE edema Neuro: Alert, no focal deficits, moves all extremities, Skin: warm/dry OBJ DATA Labs CBC & Chem 7: 05/13/20 05:28 05/14/20 05:30 Labs: Abnormal Lab Results 05/14/20 05/14/20 05/13/20 05:30 05:30 05:28 RBC Hgb Hct MCV RDW Gran % Lymph % (Auto) Lymph # (Auto) Potassium 5.5 H 5.9 H* Chloride 92 L 92 L Anion Gap 17.0 H 18.0 H BUN 61 H 69 H Creatinine 10.5 H* 11.7 H* Glucose 109 H 115 H Calcium 7.5 L 7.6 L Lactate Dehydrogenase 273 H Total Protein 5.4 L Albumin 2.5 L Albumin/Globulin Ratio 0.9 L PTH Intact 259.0 H 05/13/20 05:28 RBC 2.86 L Hgb 9.3 L Hct 29.3 L MCV 102.4 H RDW 14.6 H Gran % 86.8 H Lymph % (Auto) 8.4 L Lymph # (Auto) 0.69 L Potassium Chloride Anion Gap BUN Creatinine Glucose Calcium Lactate Dehydrogenase Total Protein Albumin Albumin/Globulin Ratio PTH Intact Meds: Medications Albuterol/Ipratropium (Duoneb) 3 ml NEB Q4HP PRN PRN Reason: Shortness Of Breath Amlodipine Besylate (Norvasc) 10 mg PO PRN PRN PRN Reason: Hypertension Last Admin: 05/13/20 19:12 Dose: 10 mg Documented by: Calcitriol (Rocaltrol) 0.5 mcg PO DAILY [facility] Last Admin: 05/14/20 13:38 Dose: 0.5 mcg Documented by: Cefepime HCl (Maxipime) 1 gm IV Q24H [facility]; Protocol Cinacalcet (Sensipar) 90 mg PO DAILY [facility] Last Admin: 05/14/20 12:17 Dose: 90 mg Documented by: Cyanocobalamin (Vitamin B-12) 2,500 mcg PO QDAY [facility] Last Admin: 05/14/20 11:24 Dose: Not Given Documented by: Docusate Sodium (Colace) 200 mg PO BID [facility] Last Admin: 05/14/20 20:59 Dose: 200 mg Documented by: Hydromorphone HCl (Dilaudid) 0.5 mg IV Q2HP PRN; Protocol PRN Reason: Per Pain Protocol Last Admin: 05/15/20 04:55 Dose: 0.5 mg Documented by: Magnesium Sulfate (Magnesium Sulfate) 2 gm in 50 mls @ 50 mls/hr IV UD PRN PRN Reason: Magnesium </= 1.6 Acetaminophen (Ofirmev) 1,000 mg in 100 mls @ 200 mls/hr IV Q8 [facility]; Protocol Last Admin: 05/15/20 05:58 Dose: 200 mls/hr Documented by: Lactulose (Cephulac) 20 gm PO DAILYP PRN PRN Reason: Constipation Last Admin: 05/13/20 07:27 Dose: 20 gm Documented by: Melatonin (Melatonin 3mg Tablet) 3 mg PO QHS [facility] Last Admin: 05/14/20 20:59 Dose: 3 mg Documented by: Mineral Oil (Mineral Oil Enema) 1 dose FL DAILYP PRN PRN Reason: Constipation Multivit/Ca Carb/B Cmplx/FA/Prenat (Diatx) 1 tab PO BID [facility] Last Admin: 05/14/20 20:59 Dose: 1 tab Documented by: Omeprazole (Prilosec) 40 mg PO BID [facility] Last Admin: 05/14/20 20:59 Dose: 40 mg Documented by: Ondansetron HCl (Zofran) 4 mg IV Q4HP PRN PRN Reason: Nausea And Vomiting Last Admin: 05/14/20 16:14 Dose: 4 mg Documented by: Polyethylene Glycol (Miralax) 17 gm PO DAILYP PRN PRN Reason: Constipation Last Admin: 05/13/20 08:56 Dose: 17 gm Documented by: Polyethylene Glycol (Miralax) 17 gm PO TID [facility] Last Admin: 05/14/20 21:04 Dose: Not Given Documented by: Sevelamer Carbonate (Renvela) 2,400 mg PO TIDCC [facility] Last Admin: 05/14/20 17:44 Dose: 2,400 mg Documented by: Sodium Chloride (Saline Flush) 10 ml IV Q8 [facility] Last Admin: 05/15/20 05:58 Dose: 10 ml Documented by: Tramadol HCl (Ultram) 50 mg PO Q6HP [facility]; Protocol Last Admin: 05/13/20 19:09 Dose: 50 mg Documented by: Vitamin D (Vitamin D3) 5,000 unit PO DAILY [facility] Last Admin: 05/14/20 11:23 Dose: Not Given Documented by: A/P Narrative A/P Narrative: A: *Peritonitis, peritoneal dialysis associated: growing Enterobacter Cloacae, susceptible to current abx cefepime -Leukocytosis resolved. *ESRD: On peritoneal dialysis *Anemia, chronic: *HTN: *GERD: *mild ileus: P: -abx per nephro upon d/c via catheter -PD per nephrology -Continue home medications -bowel regimen -ppx: Heparin Time Spent With Patient Time: Total time spent is greater than 50% in coordination of care (as documented) at patient's floor/unit and/or counseling patient: QUALITY VTE Deep Vein Thrombosis/Pulmonary Embolism Present on Admission: No
[2020-05-15] MEDS: SEVELAMER 800 MG TABLET PO SCH ×4 (07:58→17:25)
[2020-05-15] MEDS: OMEPRAZOLE 20 MG CAPSULE PO SCH ×2 (07:58→21:07)
--- NOTE | 2020-05-15 08:02 | Nephrology Progress Note ---
SUBJECTIVE Subjective Patient information: Note initiated : 05/15/20 at 8:01 am Service Date, if different from initiated Date: [] Patient: Pinky Castellon 69 y/o F admitted on 05/12/20 for Peritoneal Infection. Chief Complaint: continues to c/o abdominal pain. says it has gotten worse this morning with the last drain. temp 36.2-37C. BP 122-141/80-87 Constitutional Vitals: Vital Signs Temp Pulse Resp BP Pulse Ox 36.2 C 83 16 122/80 97 05/15/20 07:56 05/15/20 07:56 05/15/20 07:56 05/15/20 07:56 05/15/20 07:56 Period Temp Pulse Resp BP Sys/Thomas Pulse Ox Last 24 Hr 36.2 C-37.0 C 78-90 16-22 122-141/80-87 95-99 Intake and Output 05/14/20 05/15/20 05/15/20 21:59 05:59 13:59 Intake Total 220 350 100 Output Total 125 350 Balance 95 0 100 Weight 86.863 kg Intake & Output: Intake & Output 05/14/20 05/15/20 05/15/20 21:59 05:59 13:59 Intake Total 220 350 100 Output Total 125 350 Balance 95 0 100 Weight 86.863 kg Intake: IV 100 100 100 Oral 120 250 Output: Void Amount 100 350 Emesis 25 Other: Meal Dinner Percent of Meal Consumed 100% Feeding Ability Independent Urine Appearance Clear Urine Color Pale general mild distress from abdominal pain neuro alert, clear speech, moves all extremities abdomen distended, tender, hypoactive BS cv RRR, unable to accurately assess edema as she complains of pain with palpation of lower extremities lungs on RA, non labored respirations, no adventitious sounds over anterior aspect A/P Assessment and plan (1) ESRD on peritoneal dialysis: Status: Chronic Comment: Underdialyzed at last clinic visit due to decreased PD and residual urinary clearance (2) Peritonitis associated with peritoneal dialysis: Status: Acute Comment: 2nd episoode, 1st was [place] Qualifiers: Encounter type: initial encounter Qualified Code(s): T85.71XA - Infection and inflammatory reaction due to peritoneal dialysis catheter, initial encounter Narrative A/P Narrative: Enterobacter Cloacae peritonitis 05/12/2020 PD fluid culture. 05/11/2020 seen in [place] for abdominal pain. 05/12/2020 blood culture NGTD 05/15/2020 talked with [facility] - micro lab. says it is susceptible to cefepime- will report sensitivity in computer. Cefepime 05/13/2020- present. continue 1 gram IP dwell =>6 hours daily. If failure of PD effluent to clear up/ she does not improve clinically by 5 days appropriate antibiotics, I recommend prompt removal of PD catheter for refractory peritonitis. I already discussed about this with the patient. Dialysis effluent WBC count => 100/mm3 on day 3 is an independent prognostic marker for treatment failure. I also asked her to consider HD as she reports significant discomfort with PD treatments. She declines HD. Antibiotic treatment will be given for at least 3 weeks. start nystatin [id number] swish and swallow QID for prevention of fungal peritonitis PD tonight 12 hours, 6 cycles, 1.8L each, tidal, 1.5 w 2.5% 1:1 ratio with 300cc last fill. on second visit 05/15/2020 ~1700 was still complaining of abdominal pain. on palpation abdomen is soft, no rebound, no guarding, patient does c/o pain constipation goal 1 BM per day hemodynamics and volume albumin 2.2, low, in the setting of infection and ESRD. difficult to assess volume status as she complains of pain as soon as I touch her feet/legs to check for edema. She is over her dry weight. dry weight to be adjusted BP well controlled start boost, chocolate (per patient's preference) acid-base Bicarbonate 25 bone-mineral metabolism corrected ca 9.1, phos 5.3, PTH 259, all at goal. BUN/ K 59/5.1. azotemia is improving, hyperkalemia resolving. continue PD hematologic hemoglobin 9.3, MCV 102.4 Time Spent With Patient Time: Total time spent is greater than 50% in coordination of care (as documented) at patient's floor/unit and/or counseling patient: detailed discussion about findings, prognosis, options for management with the patient. also discussed with RN, hospitalist, primary cableman, called the pharmacy etc. Total time spent with greater than 50% in coordination of care (as documented) at patient's floor/unit and/or counseling patient:: Greater than 35 minutes
[2020-05-15] MEDS: POLYETHYLENE GLYCOL 3350 17 GM PACKET PO SCH ×3 (08:56→21:08)
[2020-05-15] MEDS: CINACALCET 30 MG TABLET PO SCH (08:56)
[2020-05-15] MEDS: DOCUSATE SODIUM 100 MG CAPSULE PO SCH ×2 (08:56→21:07)
[2020-05-15] MEDS: FOLIC ACID/VITAMIN B COMP W-C 1 TAB TABLET PO SCH ×2 (08:56→21:08)
[2020-05-15] MEDS: CALCITRIOL 0.25 MCG CAPSULE PO SCH (08:56)
[2020-05-15] MEDS: VITAMIN D3 5,000 UNIT CAPSULE PO SCH (08:57)
[2020-05-15] MEDS: CYANOCOBALAMIN (VITAMIN B-12) 500 MCG TABLET PO SCH (08:57)
[2020-05-15] MEDS: traMADol 50 MG TABLET PO SCH ×2 (08:57→17:23)
[2020-05-15 09:56] LABS: Albumin 2.2 gm/dL (3.2-5.2); Blood Urea Nitrogen 59 mg/dl (8-23); Calcium 7.7 mg/dl (8.6-10.4); Carbon Dioxide 25 mmol/L (22-30); Glucose 118 mg/dL (70-105); Phosphorous 5.3 mg/dL (2.7-4.5)
[2020-05-15 10:00] LABS: Chloride 91 mmol/L (96-108); Glomerular Filtration Rate 4
[2020-05-15] MEDS: CEFEPIME 1 GM VIAL IV SCH (11:38)
[2020-05-15] MEDS: LACTULOSE 20 GM/30 ML ORAL.SOL PO PRN (13:02)
[2020-05-15 14:57] LABS: Eosinophils,Peritoneal Fluid 2 %; Monocyte,Peritoneal Fluid 4 %; Neutrophils,Peritoneal Fluid 93 %; Nucleated Cel,Peritoneal Fluid 5559 /cumm; RBC,Peritoneal Fluid < 50000 /cumm
[2020-05-15] MEDS: NYSTATIN 500,000 UNITS/5 ML ORAL.SUSP SSW SCH ×2 (17:24→20:56)
[2020-05-15] MEDS: ONDANSETRON 4 MG/2 ML VIAL IV PRN ×2 (17:31→21:45)
[2020-05-15] MEDS: MELATONIN 3 MG TABLET PO SCH (21:07)
[2020-05-15] MEDS: rOPINIRole 0.25 MG TABLET PO SCH (22:08)
[2020-05-16] MEDS: ONDANSETRON 4 MG/2 ML VIAL IV PRN ×2 (03:00→17:06)
[2020-05-16] MEDS: traMADol 50 MG TABLET PO SCH ×2 (03:53→09:46)
[2020-05-16] MEDS: ACETAMINOPHEN 1,000 MG/100 ML BOTTLE IV SCH ×3 (05:59→22:20)
[2020-05-16] MEDS: 0.9 % SODIUM CHLORIDE 10 ML SYRINGE IV SCH ×4 (05:59→20:12)
--- NOTE | 2020-05-16 07:07 | Internal Med Progress Note ---
SUBJECTIVE Subjective Patient information: Note initiated : 05/16/20 at 7:06 am Service Date, if different from initiated Date: [] Patient: Pinky Castellon 69 y/o F admitted on 05/12/20 for Peritoneal Infection. Chief Complaint: [] Interval history: History of present illness: Ms. Castellon is a 69 year old F Presents to the ED for peritoneal infection. She is a peritoneal dialysis patient syringa and had peritoneal fluid withdrawn the other day results came back consistent with infection. With cloudy thick peritoneal fluid. She came in last night because her peritoneal fluid was so thick and cloudy that she could run her dialysis and she called the dialysis nurse who told her to come in the ED. Is also having severe generalized crampy abdominal pain. Denies fever chills. This morning she did have some chest discomfort bilaterally as a pressure which came on gradually on its own while she was sitting in bed and gradually went away after an hour, no dyspnea. Also complains of constipation. 05/13 No bowel movement in 3 days. Has abdominal discomfort. Undergoing dialysis currently. Had episode of nausea vomiting last night. Constipation. 05/14 abd pain with end of PD cycles, states when straining it hurts. Episode of nausea/vomiting after taking evening medications last night. No other issues. Abdominal x-ray doing mild ileus. 05/15 Appears comfortable on visit this morning. But does complain of abdominal discomfort. She has some emesis last night. Afebrile. 05/16 Still having abdominal pain with dialysis. Had some nausea vomiting last night none this morning. Review of Systems: denies headache/fever/chills/chest pain/cough/dyspnea/diarrhea. Otherwise see above. Constitutional Vitals: Vital Signs Temp Pulse Resp BP Pulse Ox 97.7 F 79 14 117/75 98 05/16/20 03:35 05/16/20 03:35 05/16/20 03:35 05/16/20 03:35 05/16/20 03:35 Period Temp Pulse Resp BP Sys/Thomas Pulse Ox Last 24 Hr 97.2 F-98.3 F 79-85 14-20 102-122/66-80 95-98 Intake and Output 05/15/20 05/16/20 05/16/20 21:59 05:59 13:59 Intake Total 590 300 100 Output Total 300 50 Balance 290 250 100 Weight 88.133 kg Intake & Output: Intake & Output 05/15/20 05/16/20 05/16/20 21:59 05:59 13:59 Intake Total 590 300 100 Output Total 300 50 Balance 290 250 100 Weight 88.133 kg Intake: IV 100 100 100 Oral 490 200 Output: Void Amount 50 Emesis 300 Other: Meal Dinner Percent of Meal Consumed Refused Urine Appearance Clear Urine Color Pale Stool Size Large Stool Color Brown Stool Consistency Formed # Voids 1 # Bowel Movements 1 Exam: General: Alert, Awake, No acute Distress Eyes/N/T: EOMI, Head/Neck: neck supple, CV: RRR, 2/6SM, Pulm: Clear b/l, no wheezing/rhonchi/rales Abd: soft, generalized tenderness, +BS x4 Ext: no clubbing/cyanosis/ trace b/l LE edema Neuro: Alert, no focal deficits, moves all extremities, Skin: warm/dry OBJ DATA Labs CBC & Chem 7: 05/13/20 05:28 05/15/20 08:40 Labs: Abnormal Lab Results 05/15/20 05/14/20 05/14/20 08:40 05:30 05:30 Sodium 132 L Potassium 5.5 H Chloride 91 L 92 L Anion Gap 17.0 H BUN 59 H 61 H Creatinine 9.4 H* 10.5 H* Glucose 118 H 109 H Calcium 7.7 L 7.5 L Phosphorus 5.3 H Lactate Dehydrogenase Total Protein Albumin 2.2 L Albumin/Globulin Ratio PTH Intact 259.0 H 05/13/20 05:28 Sodium Potassium 5.9 H* Chloride 92 L Anion Gap 18.0 H BUN 69 H Creatinine 11.7 H* Glucose 115 H Calcium 7.6 L Phosphorus Lactate Dehydrogenase 273 H Total Protein 5.4 L Albumin 2.5 L Albumin/Globulin Ratio 0.9 L PTH Intact Meds: Medications Albuterol/Ipratropium (Duoneb) 3 ml NEB Q4HP PRN PRN Reason: Shortness Of Breath Amlodipine Besylate (Norvasc) 10 mg PO PRN PRN PRN Reason: Hypertension Last Admin: 05/13/20 19:12 Dose: 10 mg Documented by: Calcitriol (Rocaltrol) 0.5 mcg PO DAILY [facility] Last Admin: 05/15/20 08:56 Dose: 0.5 mcg Documented by: Cefepime HCl (Maxipime) 1 gm IV Q24H [facility]; Protocol Last Admin: 05/15/20 11:38 Dose: 1 gm Documented by: Cinacalcet (Sensipar) 90 mg PO DAILY [facility] Last Admin: 05/15/20 08:56 Dose: 90 mg Documented by: Cyanocobalamin (Vitamin B-12) 2,500 mcg PO QDAY [facility] Last Admin: 05/15/20 08:57 Dose: 2,500 mcg Documented by: Docusate Sodium (Colace) 200 mg PO BID [facility] Last Admin: 05/15/20 21:07 Dose: 200 mg Documented by: Hydromorphone HCl (Dilaudid) 0.5 mg IV Q2HP PRN; Protocol PRN Reason: Per Pain Protocol Last Admin: 05/15/20 23:18 Dose: 0.5 mg Documented by: Magnesium Sulfate (Magnesium Sulfate) 2 gm in 50 mls @ 50 mls/hr IV UD PRN PRN Reason: Magnesium </= 1.6 Acetaminophen (Ofirmev) 1,000 mg in 100 mls @ 200 mls/hr IV Q8 [facility]; Protocol Last Infusion: 05/16/20 06:35 Dose: Infused Documented by: Lactulose (Cephulac) 20 gm PO DAILYP PRN PRN Reason: Constipation Last Admin: 05/15/20 13:02 Dose: 20 gm Documented by: Melatonin (Melatonin 3mg Tablet) 3 mg PO QHS [facility] Last Admin: 05/15/20 21:07 Dose: 3 mg Documented by: Mineral Oil (Mineral Oil Enema) 1 dose MT DAILYP PRN PRN Reason: Constipation Multivit/Ca Carb/B Cmplx/FA/Prenat (Diatx) 1 tab PO BID [facility] Last Admin: 05/15/20 21:08 Dose: 1 tab Documented by: Nystatin (Nystatin) 500,000 units SSW QID [facility] Last Admin: 05/15/20 20:56 Dose: Not Given Documented by: Omeprazole (Prilosec) 40 mg PO BID [facility] Last Admin: 05/15/20 21:07 Dose: 40 mg Documented by: Ondansetron HCl (Zofran) 4 mg IV Q4HP PRN PRN Reason: Nausea And Vomiting Last Admin: 05/16/20 03:00 Dose: 4 mg Documented by: Polyethylene Glycol (Miralax) 17 gm PO DAILYP PRN PRN Reason: Constipation Last Admin: 05/13/20 08:56 Dose: 17 gm Documented by: Polyethylene Glycol (Miralax) 17 gm PO TID [facility] Last Admin: 05/15/20 21:08 Dose: Not Given Documented by: Ropinirole HCl (Requip) 0.5 mg PO HS [facility] Last Admin: 05/15/20 22:08 Dose: 0.5 mg Documented by: Sevelamer Carbonate (Renvela) 2,400 mg PO TIDCC [facility] Last Admin: 05/15/20 17:25 Dose: Not Given Documented by: Sodium Chloride (Saline Flush) 10 ml IV Q8 [facility] Last Admin: 05/16/20 05:59 Dose: 10 ml Documented by: Tramadol HCl (Ultram) 50 mg PO Q6HP [facility]; Protocol Last Admin: 05/16/20 03:53 Dose: 50 mg Documented by: Vitamin D (Vitamin D3) 5,000 unit PO DAILY [facility] Last Admin: 05/15/20 08:57 Dose: 5,000 unit Documented by: A/P Narrative A/P Narrative: A: *Peritonitis, peritoneal dialysis associated: growing Enterobacter Cloacae, susceptible to current abx cefepime -Leukocytosis resolved. *ESRD: On peritoneal dialysis *Anemia, chronic: *HTN: *GERD: *mild ileus: P: -abx per nephro upon d/c via catheter -PD per nephrology -Continue home medications -bowel regimen -ppx: Heparin Time Spent With Patient Time: Total time spent is greater than 50% in coordination of care (as documented) at patient's floor/unit and/or counseling patient: QUALITY VTE Deep Vein Thrombosis/Pulmonary Embolism Present on Admission: No
[2020-05-16] MEDS: OMEPRAZOLE 20 MG CAPSULE PO SCH ×2 (07:32→20:12)
[2020-05-16] MEDS: HYDROmorphone 0.5 MG/0.5 ML SYRINGE IV PRN ×3 (07:36→20:11)
[2020-05-16 09:01] LABS: Hemoglobin 7.9 g/dL (11.2-15.7); Mean Cell Volume 97.6 fL (80.0-100.0); Mean Corpuscular HGB Conc 32.9 g/dL (31.0-36.0); Platelet Count 209 K/mcL (140-440); RBC 2.46 M/mcL (3.59-5.38); Red Cell Distribution Width 14.7 % (11.5-14.5); WBC 6.3 K/mcL (4.50-11.00)
[2020-05-16 09:18] LABS: Blood Urea Nitrogen 52 mg/dl (8-23); Carbon Dioxide 27 mmol/L (22-30); Glucose 95 mg/dL (70-105); Phosphorous 4.4 mg/dL (2.7-4.5)
[2020-05-16] MEDS: SEVELAMER 800 MG TABLET PO SCH ×4 (09:27→17:15)
[2020-05-16 09:28] LABS: Band Neutrophils % 1 % (0-10); Eosinophils % (Manual) 2 % (0-7); Lymphocytes % 10 % (15-49); Monocytes % (Manual) 1 % (1-12); Platelet Estimate NORMAL (NORMAL); RBC Morphology NORMAL (NORMAL); Segmented Neutrophils % 86 % (38-78)
[2020-05-16] MEDS: NYSTATIN 500,000 UNITS/5 ML ORAL.SUSP SSW SCH ×4 (09:28→20:13)
[2020-05-16] MEDS: CALCITRIOL 0.25 MCG CAPSULE PO SCH ×2 (09:28→14:31)
[2020-05-16] MEDS: POLYETHYLENE GLYCOL 3350 17 GM PACKET PO SCH ×3 (09:28→20:13)
[2020-05-16] MEDS: DOCUSATE SODIUM 100 MG CAPSULE PO SCH ×2 (09:28→20:12)
[2020-05-16] MEDS: FOLIC ACID/VITAMIN B COMP W-C 1 TAB TABLET PO SCH ×3 (09:28→20:12)
[2020-05-16] MEDS: CINACALCET 30 MG TABLET PO SCH ×2 (09:28→14:30)
[2020-05-16] MEDS: CYANOCOBALAMIN (VITAMIN B-12) 500 MCG TABLET PO SCH ×2 (09:29→14:32)
[2020-05-16] MEDS: VITAMIN D3 5,000 UNIT CAPSULE PO SCH ×2 (09:29→14:32)
[2020-05-16 09:30] LABS: Ferritin 726.6 ng/ml (30-400)
[2020-05-16 09:33] LABS: Albumin 1.9 gm/dL (3.2-5.2); Chloride 89 mmol/L (96-108); Glomerular Filtration Rate 4; Iron 28 mcg/dl (37-145); TIBC Calculation 90 ug/dl (228-428); Transferrin % Saturation 31 % (15-50)
[2020-05-16] MEDS: CEFEPIME 1 GM VIAL IV SCH (11:28)
[2020-05-16 11:59] LABS: Eosinophils,Peritoneal Fluid 2 %; Mesothelial,Peritoneal Fluid 1 %; Monocyte,Peritoneal Fluid 5 %; Neutrophils,Peritoneal Fluid 91 %; Nucleated Cel,Peritoneal Fluid 2186 /cumm; RBC,Peritoneal Fluid < 50000 /cumm
--- NOTE | 2020-05-16 13:31 | Non-GYN Cytology Report ---
NON GOLD LEAF GILDER SPECIMEN NG DX CATEGORY Negative MICROSCOPIC DIAGNOSIS PERITONEAL FLUID, PARACENTESIS: -- ACUTE AND CHRONIC INFLAMMATION. -- NO ATYPICAL OR MALIGNANT CELLS IDENTIFIED. (RLF:sln) MICROSCOPIC DESCRIPTION Thinprep, cytospin and cell block slides are examined and demonstrate neutrophils and lymphocytes with a few macrophages. No atypical or malignant cells are identified. (RLF:sln) EXTERNAL COMMENT ~55 mL fresh cloudy yellow fluid: 1 thinprep, 1 Choi Giemsa, 1 pap, 1 Diff Quik, 1 cell block Electronically Signed by: Keyana Monroe M.D.
[2020-05-16] MEDS ORDERED: CALCIUM CARBONATE 500 MG TAB.CHEW CHEWED PRN (14:02)
--- NOTE | 2020-05-16 16:50 | Nephrology Progress Note ---
SUBJECTIVE Subjective Patient information: Note initiated : 05/16/20 at 4:48 pm Service Date, if different from initiated Date: [] Patient: Pinky Castellon 69 y/o F admitted on 05/12/20 for Peritoneal Infection. Chief Complaint: patient seen several times today. during one visit her son was in the room. She complained of abdominal pain that intermittently got better to a 4 out of 10. Had one BM Constitutional Vitals: Vital Signs Temp Pulse Resp BP Pulse Ox 36.3 C 94 H 14 112/76 99 05/16/20 12:00 05/16/20 12:00 05/16/20 12:00 05/16/20 12:00 05/16/20 12:00 Period Temp Pulse Resp BP Sys/Thomas Pulse Ox Last 24 Hr 36.3 C-36.8 C 79-94 14-16 105-129/66-78 96-99 Intake and Output 05/16/20 05/16/20 05/16/20 05:59 13:59 21:59 Intake Total 300 100 100 Output Total 50 Balance 250 100 100 Weight 88.133 kg Patient Weight 05/17/20 05:59 Weight 88.133 kg general: mild distress from abdominal pain HEENT nc, at, non icteric sclerae cv RRR abdomen distended, tender without rebound or guarding neruo alert, clear speech, oriented, moves all extremities Intake & Output: Intake & Output 05/16/20 05/16/20 05/16/20 05:59 13:59 21:59 Intake Total 300 100 100 Output Total 50 Balance 250 100 100 Weight 88.133 kg Intake: IV 100 100 100 Oral 200 Output: Void Amount 50 Other: Meal Breakfast Lunch Percent of Meal Consumed Refused 25% Urine Appearance Clear Urine Color Pale A/P Assessment and plan (1) Peritonitis associated with peritoneal dialysis: Status: Acute Comment: 2nd episoode, 1st was [place] Qualifiers: Encounter type: initial encounter Qualified Code(s): T85.71XA - Infection and inflammatory reaction due to peritoneal dialysis catheter, initial encounter (2) ESRD on peritoneal dialysis: Status: Chronic Comment: Underdialyzed at last clinic visit due to decreased PD and residual urinary clearance Narrative A/P Narrative: Enterobacter Cloacae peritonitis 05/12/2020 PD fluid culture.05/15/2020 talked with [facility] - micro lab. susceptible to cefepime. Cefepime 05/13/2020- present. continue 1 gram IP dwell =>6 hours daily. 05/11/2020 seen in [place] for abdominal pain. 05/12/2020 blood culture NGTD If failure of PD effluent to clear up/ she does not improve clinically by 5 days appropriate antibiotics, I recommend prompt removal of PD catheter for refractory peritonitis. I already discussed about this with the patient. Dialysis effluent WBC count => 100/mm3 on day 3 is an independent prognostic marker for treatment failure. Antibiotic treatment will be given for at least 3 weeks. start nystatin [id number] swish and swallow QID for prevention of fungal peritonitis PD tonight 12 hours, 7 fills and 300cc last fill (8th), 1800cc per fill, 1300cc tidal in attempt to control abdominal pain, 2.5% dextrose add levofloxacin 250mg po daily scheduled (double coverage for peritonitis as cell count slow to improve and she continues to be symptomatic with significant pain) constipation goal 1 BM per day. give lactulose if goal not achieved hemodynamics and volume albumin , low, in the setting of infection and ESRD. difficult to assess volume status as she complains of pain as soon as I touch her feet/legs to check for edema. She is over her dry weight. BP well controlled boost, chocolate (per patient's preference) Time Spent With Patient Time: Total time spent is greater than 50% in coordination of care (as documented) at patient's floor/unit and/or counseling patient: including review of lab results, plan, medication adverse effects, discussion with RN, her son, PD RN and housing specialist from [place] when she requested to be transferred Total time spent with greater than 50% in coordination of care (as documented) at patient's floor/unit and/or counseling patient:: Greater than 35 minutes
[2020-05-16] MEDS ORDERED: PROMETHAZINE 25 MG/ML VIAL ONE (19:31)
[2020-05-16] MEDS: PROMETHAZINE 25 MG/ML VIAL IV PRN (19:32)
[2020-05-16] MEDS: rOPINIRole 0.25 MG TABLET PO SCH (20:12)
[2020-05-16] MEDS: MELATONIN 3 MG TABLET PO SCH (20:12)
[2020-05-16] MEDS ORDERED: LEVOFLOXACIN 250 MG TABLET PO ONE (22:00)
[2020-05-16] MEDS ORDERED: LEVOFLOXACIN 500 MG TABLET ONE (22:12)
[2020-05-17] MEDS: HYDROmorphone 0.5 MG/0.5 ML SYRINGE IV PRN ×8 (01:25→23:09)
[2020-05-17] MEDS: traMADol 50 MG TABLET PO SCH ×3 (04:33→18:23)
[2020-05-17] MEDS: 0.9 % SODIUM CHLORIDE 10 ML SYRINGE IV SCH ×5 (05:56→20:56)
[2020-05-17] MEDS: ACETAMINOPHEN 1,000 MG/100 ML BOTTLE IV SCH ×3 (06:01→20:56)
[2020-05-17] MEDS: OMEPRAZOLE 20 MG CAPSULE PO SCH ×2 (07:23→20:55)
[2020-05-17] MEDS ORDERED: LEVOFLOXACIN 500 MG TABLET PO SCH (09:00)
--- NOTE | 2020-05-17 09:12 | Transfer Summary ---
Discharge Provider Provider Patient information: Note initiated : 05/17/20 at 9:06 am Service Date, if different from initiated Date: [] Patient: Pinky Castellon 69 y/o F admitted on 05/12/20 for Peritoneal Infection. Chief Complaint: Abdominal pain Transfer diagnosis * Acute peritonitis, peritoneal dialysis patient. Cultures Enterobacter susceptible to cefepime. On antibiotics per nephrology * Severe abdominal pain rule out acute abdomen * Sepsis secondary above clinically improved * ESRD on peritoneal dialysis. Per nephrology Dr. Laureano dialysis catheter will need to be removed due to peritonitis and patient will transition to hemodialysis. Case was discussed with [facility] and patient accepted for transfer for further management. * History of hypertension * Anemia of chronic disease stable * GERD Brief hospital course Presents to the ED for peritoneal infection. She is a peritoneal dialysis patient syringa and had peritoneal fluid withdrawn the other day results came back consistent with infection. With cloudy thick peritoneal fluid. She came in last night because her peritoneal fluid was so thick and cloudy that she could run her dialysis and she called the dialysis nurse who told her to come in the ED. Is also having severe generalized crampy abdominal pain. Denies fever chills. This morning she did have some chest discomfort bilaterally as a pressure which came on gradually on its own while she was sitting in bed and gradually went away after an hour, no dyspnea. Also complains of constipation. 05/13 No bowel movement in 3 days. Has abdominal discomfort. Undergoing dialysis currently. Had episode of nausea vomiting last night. Constipation. 05/14 abd pain with end of PD cycles, states when straining it hurts. Episode of nausea/vomiting after taking evening medications last night. No other issues. Abdominal x-ray doing mild ileus. 05/15 Appears comfortable on visit this morning. But does complain of abdominal discomfort. She has some emesis last night. Afebrile. 05/16 Still having abdominal pain with dialysis. Had some nausea vomiting last night none this morning. 9/10-persistent 10 out of 10 abdominal pain on minimal movement along with guarding. Stat abdominal CT with contrast ordered. Amylase negative. White count 6.3, CT no evidence of bowel perforation or acute intra-abdominal process. Patient is being transferred to [facility] after discussion of Dr. Alexander with the hospitalist and [facility] research professor Date of admission: 05/12/20 03:20 Discharge date: 05/17/20 Primary care physician: Brad Varma Consults: 05/12/20 Consult to Physician [CONS] Stat Comment: Consulting Provider: Hugo Crump Reason For Exam: Physician to Consult 05/12/20 02:53 Consult to Physician [CONS] Routine Comment: Consulting Provider: Santy Lauren Reason For Exam: Physician to Consult Discharge Meds Discharge Medications Home Medications cinacalcet 30 mg tablet 90 mg PO DAILY tab 06/21/18 [History Confirmed 05/12/20 Last Taken 05/11/20 09:00] Folbee Plus 1 tab PO BID tablet 07/07/18 [Rx Confirmed 05/12/20 Last Taken 05/11/20 09:00] cyanocobalamin (vitamin B-12) 2,500 mcg chewable tablet 2,500 mcg PO QDAY #90 tab 11/23/18 [Rx Confirmed 05/12/20 Last Taken 05/11/20 09:00] gentamicin 0.1 % topical cream 1 applic TOPICAL DIRECTED #15 g 05/24/19 [Rx Confirmed 05/12/20 Last Taken 05/11/20 20:00] sevelamer carbonate 800 mg tablet 2,400 mg PO TIDCC #270 tab 05/24/19 [Rx Confirmed 05/12/20 Last Taken 05/11/20 12:00] ferrous fumarate 324 mg (106 mg iron) tablet 324 mg PO QDAY #30 tab 09/27/19 [Rx Confirmed 05/12/20 Last Taken 05/11/20 09:00] calcitriol 0.25 mcg capsule 0.25 mcg PO QDAY cap 03/27/20 [History Confirmed 05/12/20 Last Taken 05/11/20 09:00] cholecalciferol (vitamin D3) 125 mcg (5,000 unit) tablet 125 mcg PO QDAY #30 tab 03/27/20 [Rx Confirmed 05/12/20 Last Taken 05/11/20 09:00] omeprazole 20 mg capsule,delayed release 40 mg PO BID #90 cap 05/07/20 [Rx Confi rmed 05/12/20 Last Taken 05/11/20 06:00] amlodipine 10 mg PO PRN PRN 05/12/20 [History Confirmed 05/12/20 Last Taken 05/11/20 11:00] sevelamer carbonate 2,400 mg PO TIDWMEAL 05/12/20 [History Confirmed 05/12/20 Last Taken 05/11/20 12:00] sevelamer carbonate 800 mg PO DAILY 05/12/20 [History Confirmed 05/12/20 Last Taken 05/11/20 14:00] COURSE Hospital Course Hospital course: . Discharge diagnosis: . Time Spent with Patient Time attestation: Total time spent providing and/or coordinating discharge services: EXAM Constitutional Vitals: Temp Pulse Resp BP Pulse Ox 98.9 F 85 18 113/73 97 05/17/20 07:59 05/17/20 07:59 05/17/20 07:59 05/17/20 07:59 05/17/20 07:59 Extremely anxious Abdomen remains tender No pallor Guarding noted Discharge Data Data Completed and Pending Labs on day of discharge: Labs from last 24 hours 05/17/20 05/16/20 05/16/20 08:00 10:20 08:12 Total Counted Seg Neutrophils % Band Neutrophils % Lymphocytes % Monocytes % (Manual) Eosinophils % (Manual) Platelet Estimate RBC Morphology Sodium Potassium Chloride Carbon Dioxide Anion Gap BUN Creatinine GFR Calculation Glucose Calcium Phosphorus Iron TIBC Unsat Iron Binding Transferrin % Sat Ferritin Albumin Amylase 23 L Peritoneal Source Peritoneal Peritoneal Color P. yellow Peritoneal Appearance Cloudy Peritoneal RBC < [address] 100 Periton Nuc Cells 2186 Periton Neutrophils 91 Periton Lymphocytes 1 Peritoneal Monocytes 5 Peritoneal Eosinophils 2 Peritoneal Basophils Not Reportable Periton Mesothelial 1 Periton Macrophages Not Reportable Peritoneal Plasma Cell Not Reportable Peritoneal Other Cells Not Reportable Peritoneal Diff Commnt Not Reportable Peritoneal Amylase Pending 05/16/20 05/16/20 08:12 08:12 Total Counted 100 Seg Neutrophils % 86 H Band Neutrophils % 1 Lymphocytes % 10 L Monocytes % (Manual) 1 Eosinophils % (Manual) 2 Platelet Estimate Normal RBC Morphology Normal Sodium 130 L Potassium 4.6 Chloride 89 L Carbon Dioxide 27 Anion Gap 14.0 BUN 52 H Creatinine 9.1 H* GFR Calculation 4 Glucose 95 Calcium 7.0 L Phosphorus 4.4 Iron 28 L TIBC 90 L Unsat Iron Binding 62 L Transferrin % Sat 31 Ferritin 726.6 H Albumin 1.9 L Amylase Peritoneal Source Peritoneal Color Peritoneal Appearance Peritoneal RBC Periton Tot Cells Ct Periton Nuc Cells Periton Neutrophils Periton Lymphocytes Peritoneal Monocytes Peritoneal Eosinophils Peritoneal Basophils Periton Mesothelial Periton Macrophages Peritoneal Plasma Cell Peritoneal Other Cells Peritoneal Diff Commnt Peritoneal Amylase Discharge Plan Patient/Caregiver Discharge Instructions Diet: Renal Prescriptions: Continued cyanocobalamin (vitamin B-12) 2,500 mcg tablet,chewable 2,500 mcg PO QDAY Qty: 90 RF: 1 sevelamer carbonate 800 mg tablet 2,400 mg PO TIDCC Qty: 270 RF: 12 gentamicin 0.1 % cream 1 applic TOPICAL DIRECTED Qty: 15 RF: 12 ferrous fumarate 324 mg (106 mg iron) tablet 324 mg PO QDAY Qty: 30 RF: 2 calcitriol 0.25 mcg capsule 0.25 mcg PO QDAY RF: 0 cholecalciferol (vitamin D3) [Vitamin D3] 125 mcg (5,000 unit) tablet 125 mcg PO QDAY Qty: 30 RF: 11 omeprazole 20 mg capsule,delayed release(DR/EC) 40 mg PO BID Qty: 90 RF: 3 cinacalcet 30 mg tablet 90 mg PO DAILY RF: 0 Hold Instructions: Doctor's Order Folbee Plus 1 TAB tablet 1 tab PO BID RF: 0 amlodipine 5 mg tablet 10 mg PO PRN PRN (Reason: Hypertension) RF: 0 sevelamer carbonate 800 mg PO DAILY RF: 0 sevelamer carbonate 800 mg tablet 2,400 mg PO TIDWMEAL RF: 0 Follow Up Plan Follow up with: Santy Lauren MD [Physician] - Brad Varma MD [Primary Care Provider] - Patient Disposition: [facility] Prognosis: Fair Overall status at discharge: patient is not back to baseline Discharge Date/Time: 05/17/20 23:27 Discharge Location: [facility] Discharge Comment: via [facility] [place] ambulance QUALITY VTE Deep Vein Thrombosis/Pulmonary Embolism Present on Admission: No
[2020-05-17] MEDS ORDERED: IOPAMIDOL 100 ML BOTTLE IV ONE (09:24)
[2020-05-17] MEDS: DOCUSATE SODIUM 100 MG CAPSULE PO SCH ×2 (09:31→20:49)
[2020-05-17] MEDS: POLYETHYLENE GLYCOL 3350 17 GM PACKET PO SCH ×3 (09:31→20:50)
[2020-05-17] MEDS: FOLIC ACID/VITAMIN B COMP W-C 1 TAB TABLET PO SCH ×2 (09:31→20:55)
[2020-05-17] MEDS: SEVELAMER 800 MG TABLET PO SCH ×4 (09:31→17:26)
[2020-05-17] MEDS: CYANOCOBALAMIN (VITAMIN B-12) 500 MCG TABLET PO SCH (09:32)
[2020-05-17] MEDS: CALCITRIOL 0.25 MCG CAPSULE PO SCH (09:32)
[2020-05-17] MEDS: VITAMIN D3 5,000 UNIT CAPSULE PO SCH (09:32)
[2020-05-17] MEDS: CINACALCET 30 MG TABLET PO SCH (09:32)
[2020-05-17] MEDS: NYSTATIN 500,000 UNITS/5 ML ORAL.SUSP SSW SCH ×4 (09:32→20:55)
[2020-05-17 10:08] LABS: Hemoglobin 8.3 g/dL (11.2-15.7); Mean Cell Volume 99.2 fL (80.0-100.0); Mean Corpuscular HGB Conc 31.9 g/dL (31.0-36.0); Mean Platelet Volume 9.7 fL (7.4-10.4); Platelet Count 231 K/mcL (140-440); RBC 2.62 M/mcL (3.59-5.38); Red Cell Distribution Width 14.6 % (11.5-14.5); WBC 4.6 K/mcL (4.50-11.00)
[2020-05-17 10:44] LABS: Band Neutrophils % 1 % (0-10); Eosinophils % (Manual) 1 % (0-7); Lymphocytes % 10 % (15-49); Monocytes % (Manual) 2 % (1-12); Platelet Estimate NORMAL (NORMAL); RBC Morphology NORMAL (NORMAL); Segmented Neutrophils % 86 % (38-78)
[2020-05-17] MEDS: PROMETHAZINE 25 MG/ML VIAL IV PRN (11:54)
--- NOTE | 2020-05-17 12:00 | Cat Scan Report ---
CLINICAL INFORMATION: Abdominal pain COMPARISON: Abdomen and pelvic CT 06/17/2018. Abdominal MRI from 12/22/2013 TECHNIQUE: Following enteric contrast, 80 cc of Isovue-370 were injected intravenously, and 60 seconds later, 0.625 mm helical slices were obtained from the mid heart through the subtrochanteric regions. Following reconstruction, 2.5 mm sagittal, coronal and axial reformatted images were processed and reviewed at bone, lung and soft tissue windows. Five minutes later, 0.625 mm helical slices were obtained from the mid heart through the kidneys and viewed at soft tissue windows.The exam was performed using radiation dose optimization techniques including, but not limited to, automated exposure control, adjustment of the mA and/or kV according to patient size and use of iterative reconstruction technique. FINDINGS: Small bilateral pleural effusions and subsegmental atelectasis in the posterior lower lobes have developed since prior CT. Small hiatal hernia noted. Heart is grossly normal in size configuration Abdominal images show multiple cysts scattered throughout the liver. Most are simple although there is moderate wall calcification within a 4 cm subdiaphragmatic cyst in the right hepatic lobe as previously seen. The gallbladder is contracted - no stones identified. The intrahepatic and common bile ducts are normal caliber: CBD is 6 mm. The pancreas and spleen are unremarkable. Multiple large cysts, replacing the renal parenchyma, is compatible with adult polycystic kidney disease seen as before. There are 4-5 cysts which demonstrate wall calcifications but this is stable. A new 3 cm solid nodule is seen in the superior medial region of the left kidney. This likely originates from the posterior kathy of the left adrenal gland, but it could be a solid nodule within a pre-existing cyst. This may indicate a stage I renal cell carcinoma. The aorta is normal in diameter with scattered atherosclerotic plaque. Pelvic images show urinary bladder is unremarkable and contains moderate urine. There are scattered fibroids in the uterus ranging up to 21 mm the posterior body. Moderate free fluid throughout the abdomen and pelvis likely represents dialysate in this patient on peritoneal dialysis. Peroneal dialysis catheter enters the periumbilical region and descends into the central false pelvis. It is coiled. Stomach, small large bowel show mild dilatation most patible with ileus. Multiple sigmoid diverticuli appreciated. Bone windows show grade 1 L4-5 spondylolisthesis with broad disc protrusion resulting in mild IV foraminal narrowing. No focal osseous abnormality. IMPRESSION: 1. New 3 cm nodule in the superior medial region of the left kidney region. This may represent solid lesion such as a early renal cell carcinoma developing within a pre-existing cyst or possibly a nodule off the posterior kathy of the left adrenal gland. Suggest abdominal MRI to compare with the 12/22/2013 MRI. 2. Scattered hepatic cysts. Most are simple but a 4 cm subdiaphragmatic right hepatic lobe cyst contains wall calcifications - as previously seen. 3. Moderate free intraperitoneal fluid throughout the abdomen and pelvis - presumably peritoneal dialysate. 4. Moderate ileus 5. Uterine fibroid - stable since 2014 6. Small bilateral pleural effusions - new Interpreted and Authenticated by: George Ortega 05/17/20
[2020-05-17] MEDS: CEFEPIME 1 GM VIAL IV SCH (12:11)
--- NOTE | 2020-05-17 17:19 | Nephrology Progress Note ---
SUBJECTIVE Subjective Patient information: Note initiated : 05/17/20 at 5:11 pm Service Date, if different from initiated Date: [] Patient: Pinky Castellon 69 y/o F admitted on 05/12/20 for Peritoneal Infection. Chief Complaint: visit ~8am this morning. the patient continues to complain of abdominal pain 06/16. Constitutional Vitals: Vital Signs Temp Pulse Resp BP Pulse Ox 37.2 C 92 H 18 127/76 98 05/17/20 16:00 05/17/20 16:00 05/17/20 16:00 05/17/20 16:00 05/17/20 16:00 Period Temp Pulse Resp BP Sys/Thomas Pulse Ox Last 24 Hr 36.5 C-37.2 C 82-92 14-18 113-135/72-83 97-99 Intake and Output 05/17/20 05/17/20 05/17/20 05:59 13:59 21:59 Intake Total 200 100 310 Balance 200 100 310 Intake & Output: Intake & Output 05/17/20 05/17/20 05/17/20 05:59 13:59 21:59 Intake Total 200 100 310 Balance 200 100 310 Intake: IV 100 100 100 Oral 100 210 Other: Percent of Meal Consumed Refused Feeding Ability Independent A/P Assessment and plan (1) Peritonitis associated with peritoneal dialysis: Status: Acute Comment: 2nd episoode, 1st was [place] Qualifiers: Encounter type: initial encounter Qualified Code(s): T85.71XA - I nfection and inflammatory reaction due to peritoneal dialysis catheter, initial encounter (2) Polycystic kidney disease, autosomal dominant: Status: Acute Comment: Hepatic, pancreatic and Renal cysts with ESRD and on PD since 2013 Narrative A/P Narrative: ALLERGY to HEPARIN Enterobacter Cloacae peritonitis 05/12/2020 PD fluid culture. * Cefepime 05/13- present 05/17. continue 1 gram IP dwell daily=>6 hours daily. * Levofloxacin 250mg po daily started 05/16 (the patient refused gentamicin as she reported prior ototoxicity) * nystatin 108049 units swish and swallow QID for prevention of fungal peritonitis * PD RN will drain antibiotic fill at 6 hours, prior to transfer; last PD- CCPD 05/16-05/17 05/12 blood culture NGTD 05/12 PD fluid cell count 6728 nucleated cells, 99% neutrophils. 05/15 PD gram - rare intracellular gram variable bacilli 05/16 PD fluid cell count 2186 nuc cells, 91% neutrophils Given failure of clinical improvement- significant abdominal pain during the treatment despite hydromorphone, tidal PD/ +last fill, decision made to transfer to higher level of care for PD catheter removal, transition to HD / HD catheter placement. Discussed with IM/Renal from [place]. hemodynamics and volume volume overload. weight on presentation ~80.5kg --> 88.5. unable to get adequate UF with 2.5% solution. plan as above Time Spent With Patient Time: Total time spent is greater than 50% in coordination of care (as documented) at patient's floor/unit and/or counseling patient: Total time spent with greater than 50% in coordination of care (as documented) at patient's floor/unit and/or counseling patient:: Greater than 35 minutes
[2020-05-17] MEDS: ONDANSETRON 4 MG/2 ML VIAL IV PRN (18:29)
[2020-05-17 18:47] LABS: Nucleated Cel,Peritoneal Fluid 1948 /cumm; RBC,Peritoneal Fluid < 50000 /cumm
[2020-05-17 18:54] LABS: Blood Urea Nitrogen 55 mg/dl (8-23); Calcium 7.3 mg/dl (8.6-10.4); Carbon Dioxide 25 mmol/L (22-30); Glucose 108 mg/dL (70-105)
[2020-05-17 18:56] LABS: Albumin 1.8 gm/dL (3.2-5.2); Chloride 89 mmol/L (96-108); Glomerular Filtration Rate 4; Phosphorous 5.8 mg/dL (2.7-4.5)
[2020-05-17 19:03] LABS: Monocyte,Peritoneal Fluid 6 %; Neutrophils,Peritoneal Fluid 93 %
[2020-05-17] MEDS: MELATONIN 3 MG TABLET PO SCH (20:50)
[2020-05-17] MEDS: rOPINIRole 0.25 MG TABLET PO SCH (20:55)
== END 2020-05-17 23:27 | disposition short-term general hospital (02) | DRG 919 ==
LOC: ED 01:49 → MEDSUR 03:20
PROVIDERS: ADMIT Internal Medicine; ATTEND Internal Medicine